=== PATIENT | male | born 1980 | race Caucasian/White ===

== ENCOUNTER 2017-09-11 14:39 | Observation (INO) | payer OTHER ==
--- NOTE | 2017-09-11 17:09 | RAD REPORT ---
EXAM DESCRIPTION: RAD - Abdomen Acute Series - 09/11/2017 5:01 pm CLINICAL HISTORY: Abdominal pain FINDINGS: The lungs appear clear of acute infiltrate. Free air is not seen beneath the diaphragm. The bowel gas pattern is unremarkable with a moderate amount of stool present throughout the colon
[2017-09-11] MEDS ORDERED: PANTOPRAZOLE 40 MG INJ ONE (18:00)
[2017-09-11] MEDS ORDERED: ONDANSETRON 4 MG/2 ML VIAL ONE (18:00)
[2017-09-11] MEDS ORDERED: NA CHLORIDE 0.9% 1,000 ML ONE (18:00)
--- NOTE | 2017-09-11 18:18 | EDPHYS ---
Physician Documentation [facility] Name: Rajan Bardales Age: 37 yrs Sex: Male : 1980 Arrival Date: 09/11/2017 Time: 14:43 Bed 24 Private MD: None, None ED Physician Tone Navarro HPI: 09/11 17:29 This 37 yrs old Male presents to ER via Ambulatory with complaints of carlyle Vomiting. 17:29 The patient presents to the emergency department with nausea, vomiting. Onset: The carlyle symptoms/episode began/occurred 1 year(s) ago. Possible causes: unknown. The symptoms are aggravated by food , The symptoms are alleviated by remaining still. Associated signs and symptoms: The patient has no apparent associated signs or symptoms. Severity of symptoms: At their worst the symptoms were mild. The patient has experienced similar episodes in the past, chronically. Historical: - Allergies: 14:50 No Known Allergies; sv - Home Meds: 14:50 None [Active]; sv - PMHx: 14:50 None; sv - PSHx: 14:50 None; sv - Immunization history:: Adult Immunizations up to date. - Social history:: Smoking status: Patient uses tobacco products, smokes one pack cigarettes per day. Patient uses alcohol, weekly. - Ebola Screening: : No symptoms or risks identified at this time. ROS: 17:29 Constitutional: Negative for fever, chills, and weight loss, Eyes: Negative for injury, carlyle pain, redness, and discharge, ENT: Negative for injury, pain, and discharge, Neck: Negative for injury, pain, and swelling, Cardiovascular: Negative for chest pain, palpitations, and edema, Respiratory: Negative for shortness of breath, cough, wheezing, and pleuritic chest pain, Back: Negative for injury and pain, : Negative for injury, bleeding, discharge, and swelling, MS/Extremity: Negative for injury and deformity, Skin: Negative for injury, rash, and discoloration, Neuro: Negative for headache, weakness, numbness, tingling, and seizure, Psych: Negative for depression, anxiety, suicide ideation, homicidal ideation, and hallucinations, Allergy/Immunology: Negative for hives, rash, and allergies, Endocrine: Negative for neck swelling, polydipsia, polyuria, polyphagia, and marked weight changes, Hematologic/Lymphatic: Negative for swollen nodes, abnormal bleeding, and unusual bruising. 17:29 Abdomen/GI: Positive for nausea, vomiting, dysphagia. Exam: 17:29 Constitutional: This is a well developed, well nourished patient who is awake, alert, carlyle and in no acute distress. Head/Face: Normocephalic, atraumatic. Eyes: Pupils equal round and reactive to light, extra-ocular motions intact. Lids and lashes normal. Conjunctiva and sclera are non-icteric and not injected. Cornea within normal limits. Periorbital areas with no swelling, redness, or edema. ENT: Nares patent. No nasal discharge, no septal abnormalities noted. Tympanic membranes are normal and external auditory canals are clear. Oropharynx with no redness, swelling, or masses, exudates, or evidence of obstruction, uvula midline. Mucous membranes moist. Neck: Trachea midline, no thyromegaly or masses palpated, and no cervical lymphadenopathy. Supple, full range of motion without nuchal rigidity, or vertebral point tenderness. No Meningismus. Chest/axilla: Normal chest wall appearance and motion. Nontender with no deformity. No lesions are appreciated. Cardiovascular: Regular rate and rhythm with a normal S1 and S2. No gallops, murmurs, or rubs. Normal PMI, no JVD. No pulse deficits. Respiratory: Lungs have equal breath sounds bilaterally, clear to auscultation and percussion. No rales, rhonchi or wheezes noted. No increased work of breathing, no retractions or nasal flaring. Abdomen/GI: Soft, non-tender, with normal bowel sounds. No distension or tympany. No guarding or rebound. No evidence of tenderness throughout. Back: No spinal tenderness. No costovertebral tenderness. Full range of motion. Male : Normal genitalia with no discharge or lesions. Skin: Warm, dry with normal turgor. Normal color with no rashes, no lesions, and no evidence of cellulitis. MS/ Extremity: Pulses equal, no cyanosis. Neurovascular intact. Full, normal range of motion. Neuro: Awake and alert, GCS 15, oriented to person, place, time, and situation. Cranial nerves II-XII grossly intact. Motor strength 5/5 in all extremities. Sensory grossly intact. Cerebellar exam normal. Normal gait. Psych: Awake, alert, with orientation to person, place and time. Behavior, mood, and affect are within normal limits. Vital Signs: 14:51 BP 141 / 105; Pulse 90; Resp 16; Temp 98.1; Pulse Ox 96% ; Weight 127.01 kg; Height 5 sv ft. 10 in. (177.80 cm); Pain 0/10; 17:18 BP 116 / 73; Pulse 85; Resp 18; Pulse Ox 97% on R/A; aj1 20:38 BP 110 / 76; Pulse 64; Resp 18; Pulse Ox 98% on R/A; aj1 14:51 Body Mass Index 40.18 (127.01 kg, 177.80 cm) sv MDM: 17:13 Patient medically screened. [facility] 17:31 Data reviewed: vital signs, nurses notes, lab test result(s), EKG, radiologic studies, [facility] CT scan, plain films. 09/11 17:28 Order name: Basic Metabolic Panel; Complete Time: 19:54 [facility] 09/11 17:28 Order name: BNP; Complete Time: 19:54 [facility] 09/11 17:28 Order name: CBC with Diff; Complete Time: 19:54 [facility] 09/11 17:28 Order name: Ckmb; Complete Time: 19:54 [facility] 09/11 17:28 Order name: CPK; Complete Time: 19:54 [facility] 09/11 17:28 Order name: LFT's; Complete Time: 19:54 [facility] 09/11 15:12 Order name: Abdomen Acute Series XRAY; Complete Time: 18:15 snw 09/11 17:28 Order name: Magnesium; Complete Time: 19:54 [facility] 09/11 17:28 Order name: PT-INR [facility] 09/11 17:28 Order name: Ptt, Activated [facility] 09/11 17:28 Order name: Troponin (emerg Dept Use Only); Complete Time: 19:54 [facility] 09/11 17:28 Order name: Lipase; Complete Time: 19:54 [facility] 09/11 17:28 Order name: CT Chest W/ Con [facility] 09/11 17:28 Order name: EKG; Complete Time: 17:29 [facility] 09/11 17:28 Order name: Cardiac monitoring; Complete Time: 17:56 [facility] 09/11 17:28 Order name: EKG - Nurse/Tech; Complete Time: 17:56 [facility] 09/11 17:28 Order name: IV Saline Lock; Complete Time: 18:46 [facility] 09/11 17:28 Order name: Labs collected and sent; Complete Time: 18:46 [facility] 09/11 17:28 Order name: O2 Per Protocol; Complete Time: 17:56 [facility] 09/11 17:28 Order name: O2 Sat Monitoring; Complete Time: 17:56 [facility] 09/11 18:26 Order name: CONS Physician Consult [facility] [place] 09/11 18:26 Order name: NPO EDTN 09/11 19:34 Order name: CT; Complete Time: 19:54 EDTN Administered Medications: 18:44 Drug: NS 0.9% 1000 ml Route: IV; Rate: 1 bolus; Site: right antecubital; aj1 20:59 Follow up: IV Status: Completed infusion; IV Intake: 1000ml aj 18:44 Drug: ProTONIX 40 mg Route: IVP; Site: right antecubital; aj1 20:59 Follow up: Response: No adverse reaction aj1 18:44 Drug: Zofran 4 mg Route: IVP; Site: right antecubital; aj1 20:59 Follow up: Response: No adverse reaction aj Disposition: 09/11/17 18:17 Hospitalization ordered by Angella Haley for Observation. Preliminary diagnosis are Dysphagia, Vomiting. - Bed requested for Telemetry/MedSurg (observation). - Status is Observation. aj1 - Condition is Stable. - Problem is new. - Symptoms have improved. UTI on Admission? No Signatures: Dispatcher [employer] EDTN Lilian Macias RN RN aj1 Jigna Norwood RN RN sv Woody, Diana, RN RN dw Anderson, Corey, MD MD cha Botello, Elizabeth eb Corrections: (The following items were deleted from the chart) 17:37 17:29 Chest Single View+RAD.RAD.BRZ ordered. [facility] 19:47 18:17 Hospitalization Ordered by Angella Haley MD for Observation. Preliminary diagnosis dw is Dysphagia; Vomiting. Bed requested for Telemetry/MedSurg (observation). Status is Observation. Condition is Stable. Problem is new. Symptoms have improved. UTI on Admission? No. [facility] 19:55 19:47 09/11/2017 18:17 Hospitalization Ordered by Angella Haley MD for Observation. eb Preliminary diagnosis is Dysphagia; Vomiting. Bed requested for Telemetry/MedSurg (observation). Status is Observation. Condition is Stable. Problem is new. Symptoms have improved. UTI on Admission? No. dw 21:00 19:55 09/11/2017 18:17 Hospitalization Ordered by Angella Haley MD for Observation. aj1 Preliminary diagnosis is Dysphagia; Vomiting. Bed requested for Telemetry/MedSurg (observation). Status is Observation. Condition is Stable. Problem is new. Symptoms have improved. UTI on Admission? No. eb
--- NOTE | 2017-09-11 18:18 | ER ---
Nurse's Notes [facility] Name: Rajan Bardales Age: 37 yrs Sex: Male : 1980 Arrival Date: 09/11/2017 Time: 14:43 Bed 24 Private MD: None, None Diagnosis: Dysphagia;Vomiting Presentation: 09/11 14:48 Presenting complaint: Patient states: "If I eat something it hurts going down. It's sv hard to keep stuff down." Started about a year ago. Pt reports a couple of years ago he had an xray done and they said he might have had a tear in my esophagus. Transition of care: patient was not received from another setting of care. Onset of symptoms was August 2016. Care prior to arrival: None. 14:48 Method Of Arrival: Ambulatory sv 14:48 Acuity: JALEESA 3 sv 14:48 Risk Assessment: Do you want to hurt yourself or someone else? Patient reports no sv desire to harm self or others. Initial Sepsis Screen: Does the patient meet any 2 criteria? No. Patient's initial sepsis screen is negative. Does the patient have a suspected source of infection? No. Patient's initial sepsis screen is negative. Triage Assessment: 14:48 General: Appears uncomfortable, obese, Behavior is calm, cooperative, appropriate for sv age. Pain: Denies pain. EENT: Reports pain when swallowing. Neuro: Level of Consciousness is awake, alert, obeys commands, Oriented to person, place, time, situation, Moves all extremities. Full function Gait is steady, Speech is normal. Respiratory: Respiratory effort is even, unlabored, Respiratory pattern is regular, symmetrical. GI: Reports vomiting. Derm: Skin is normal. Historical: - Allergies: 14:50 No Known Allergies; sv - Home Meds: 14:50 None [Active]; sv - PMHx: 14:50 None; sv - PSHx: 14:50 None; sv - Immunization history:: Adult Immunizations up to date. - Social history:: Smoking status: Patient uses tobacco products, smokes one pack cigarettes per day. Patient uses alcohol, weekly. - Ebola Screening: : No symptoms or risks identified at this time. Screenin:18 Abuse screen: Denies threats or abuse. Denies injuries from another. Nutritional aj1 screening: No deficits noted. Tuberculosis screening: No symptoms or risk factors identified. 20:38 Fall Risk No fall in past 12 months (0 pts). No secondary diagnosis (0 pts). IV access aj1 (20 points). Ambulatory Aid- None/Bed Rest/Nurse Assist (0 pts). Gait- Normal/Bed Rest/Wheelchair (0 pts) Mental Status- Oriented to own ability (0 pts). Total Martines Fall Scale indicates No Risk (0-24 pts). Assessment: 17:18 General: Appears in no apparent distress. comfortable, Behavior is calm, cooperative, aj1 appropriate for age. Pain: Denies pain. Neuro: Level of Consciousness is awake, alert, obeys commands. Cardiovascular: Patient's skin is warm and dry. Respiratory: Airway is patent Respiratory effort is even, unlabored, Respiratory pattern is regular, symmetrical. GI: Abdomen is non-distended, Reports vomiting, sometimes after he eats, states that he has not vomited at all in the past 24 hours. : No signs and/or symptoms were reported regarding the genitourinary system. EENT: Reports pain when swallowing. Derm: Skin is pink, warm \\T\\ dry. normal. Musculoskeletal: Circulation, motion, and sensation intact. 18:20 Reassessment: Patient appears in no apparent distress at this time. No changes from aj1 previously documented assessment. Patient and/or family updated on plan of care and expected duration. Pain level reassessed. Patient is alert, oriented x 3, equal unlabored respirations, skin warm/dry/pink. 19:22 Reassessment: Patient appears in no apparent distress at this time. No changes from aj1 previously documented assessment. Patient and/or family updated on plan of care and expected duration. Pain level reassessed. Patient is alert, oriented x 3, equal unlabored respirations, skin warm/dry/pink. 20:38 Reassessment: Patient appears in no apparent distress at this time. No changes from aj1 previously documented assessment. Patient and/or family updated on plan of care and expected duration. Pain level reassessed. Patient is alert, oriented x 3, equal unlabored respirations, skin warm/dry/pink. Vital Signs: 14:51 BP 141 / 105; Pulse 90; Resp 16; Temp 98.1; Pulse Ox 96% ; Weight 127.01 kg; Height 5 sv ft. 10 in. (177.80 cm); Pain 0/10; 17:18 BP 116 / 73; Pulse 85; Resp 18; Pulse Ox 97% on R/A; aj1 20:38 BP 110 / 76; Pulse 64; Resp 18; Pulse Ox 98% on R/A; aj1 14:51 Body Mass Index 40.18 (127.01 kg, 177.80 cm) ED Course: 14:43 Patient arrived in ED. mr 14:44 None, None is Private Physician. mr 14:50 Triage completed. sv 14:51 Arm band placed on right wrist. sv 14:51 Patient placed in waiting room, Patient notified of wait time. sv 16:55 Patient moved to radiology via wheelchair. 1 16:56 X-ray completed. Patient tolerated procedure well. 1 16:56 Patient moved back from radiology. 1 16:57 Abdomen Acute Series XRAY In Process Unspecified. EDNJ 17:09 Lilian Macias, RN is Primary Nurse. [facility] 17:13 Tone Navarro MD is Attending Physician. [facility] 17:18 Patient has correct armband on for positive identification. Bed in low position. Call [facility] light in reach. Side rails up X 1. 17:18 No provider procedures requiring assistance completed. aj1 17:31 Radiology exam delayed due to lab results not completed at this time. (BUN/Creatinine). 17:44 EKG done, by computer service technician. reviewed by Tone Navarro MD. [facility] 17:47 Radiology exam delayed due to lab results not completed at this time. IV insertion mw3 attempt and/or patient not having appropriate IV at this time. 18:17 Angella Haley MD is Hospitalizing Provider. carlyle 18:45 Initial lab(s) drawn, by fl, sent to lab. Inserted saline lock: 18 gauge in right aj antecubital area, using aseptic technique. Blood collected. 18:47 Radiology exam delayed due to lab results not completed at this time. (BUN/Creatinine). sj 19:[address] via wheelchair. nj 19:23 CT completed. Patient tolerated procedure well. Patient moved back from CT. nj 20:39 Report given to Carina Angelo LVN on 4th floor. aj1 20:39 Patient admitted, IV remains in place. aj Administered Medications: 18:44 Drug: NS 0.9% 1000 ml Route: IV; Rate: 1 bolus; Site: right antecubital; aj1 20:59 Follow up: IV Status: Completed infusion; IV Intake: 1000ml aj1 18:44 Drug: ProTONIX 40 mg Route: IVP; Site: right antecubital; aj1 20:59 Follow up: Response: No adverse reaction aj1 18:44 Drug: Zofran 4 mg Route: IVP; Site: right antecubital; aj1 20:59 Follow up: Response: No adverse reaction aj1 Intake: 20:59 IV: 1000ml; Total: 1000ml. aj1 Outcome: 18:17 Decision to Hospitalize by Provider. [facility] 20:58 Admitted to Med/surg accompanied by tech, via wheelchair, room 405, with chart. aj1 20:58 Condition: stable 20:58 Discharge instructions given to patient, Instructed on the need for admit. 21:00 Patient left the ED. aj1 Signatures: Dispatcher [employer] EDLilian Deleon RN RN aj1 Jigna Norwood RN RN sv Anderson, Corey, MD MD cha Rivera, Maria mr Magdaleno, Nathalie mh1 Rashid, Pari Kennedy, Jud Jain 3 [place] Villegas mw3 Corrections: (The following items were deleted from the chart) 14:53 14:48 Presenting complaint: Patient states: "If I eat something it hurts going down. sv It's hard to keep stuff down." Started about a year ago. sv 14:53 14:48 Acuity: JALEESA 4 sv sv
[2017-09-11] MEDS ORDERED: ONDANSETRON 4 MG/2 ML VIAL IV PRN (18:23)
[2017-09-11 18:53] LABS: Absolute Lymphocytes (CBC) 2.2 K/uL (0.7-4.9); Absolute Monocytes 0.7 K/uL (0.1-1.3); Absolute Neutrophil 4.1 K/uL (1.8-8.0); Basophils % 0.8 % (0-1.3); Eosinophils % 2.4 % (0-4.4); Hematocrit 44.9 % (39.6-49.0); Lymphocytes % 30.4 % (15.3-44.8); MCH 30.5 pg (27.0-35.0); MCV 86.8 fL (80-100); MPV 8.8 fL (7.6-11.3); Monocytes % 10.2 % (3.3-12.3); RBC Red Blood Cell Count 5.17 M/uL (4.33-5.43)
[2017-09-11 19:04] LABS: Bicarbonate 27 mEq/L (21-31); Glucose Level 95 mg/dL (65-120); Lipase 26 U/L (22-51); Potassium 3.2 mEq/L (3.6-5.0); Sodium Level 136 mEq/L (135-145)
[2017-09-11 19:10] LABS: ALT/SGPT 21 IU/L (10-60); AST/SGOT 15 IU/L (10-42); Alkaline Phosphatase 82 IU/L (42-121); BUN Blood Urea Nitrogen 7 mg/dL (6-20); Bilirubin Direct 0.1 mg/dL (0-0.2); Bilirubin Total 0.4 mg/dL (0.3-1.2); Creatine Phosphokinase 56 IU/L (22-269); Protein, Total 7.3 g/dL (6.0-8.3)
[2017-09-11 19:11] LABS: CKMB Creatine Kinase MB 1.2 ng/ml (0.3-4.0)
--- NOTE | 2017-09-11 19:33 | RAD REPORT ---
EXAM DESCRIPTION: CT - Thorax W/ Con - 09/11/2017 7:23 pm CLINICAL HISTORY: Chest pain COMPARISON: Portable chest September 11, CT trauma study 2010 TECHNIQUE: Dynamically enhanced 5 mm thick images of the chest were obtained during administration o f 100 mL non-ionic IV contrast. All CT scans are performed using dose optimization technique as appropriate and may include automated exposure control or mA/KV adjustment according to patient size. FINDINGS: No mass or infiltrate in the lung parenchyma. No pleural thickening or pleural effusion. N o pneumothorax. No chest wall mass or abnormal axillary lymphadenopathy. No abnormal mediastinal or hilar mass or lymphadenopathy seen. No acute rib finding or other acute bone process. Limited upper abdomen imaging shows no focal liver lesion or adrenal lesion. Minimal hiatal hernia is present. IMPRESSION: No acute lung parenchymal process. No mediastinal or hilar abnormality. Minimal hiatal hernia. Liver is questionably fatty infiltrated.
[2017-09-11 19:51] LABS: Protime INR 1.13
--- NOTE | 2017-09-11 20:11 | P.HP ---
Certification for Inpatient Patient admitted to: Observation With expected LOS: <2 Midnights Practitioner: I am a practitioner with admitting privileges, knowledge of patient current condition, hospital course, and medical plan of care. Services: Services provided to patient in accordance with Admission requirements found in Title 42 Section 412.3 of the Code of Federal Regulations Patient History Date of Service: 09/11/17 Reason for admission: dyspepsia, GERD History of Present Illness: Mr Bardales is a 37 years old male with history of tobacco abuse, obesity, who start about 1 years ago with recurrent episodes of epigastric pain, associated wit difficulty swallow solid food but not liquids. He is not very clear explaining his symptoms, but seems to have acid reflux as well since is having burning pain in his abdomen, radiating to his chest, leading with nausea and vomiting. He states that initially his symptoms got better with nexium, but now is not working. He smoke more than 1 ppd, and drinks a couple of beers many days of the week. He use to drink 6 beers daily before his symptoms start. No history of fever or chills. He came today to ER because his father convince him that needs to be evaluated. Lab work mostly unremarkable, except for hypokalemia 3.2. CT chest shows minimal hiatal hernia and his liver is questionably fatty infiltrated. Allergies No Known Allergies Allergy (Unverified 09/11/17 19:03) - Past Medical/Surgical History -: GERD -: tobacco abuse -: obesity Past Surgical History: Reviewed- Non-Contributory - Family History Family History: Reviewed- Non-Contributory - Social History Smoking Status: Current every day smoker Counseled patient to stop smoking for: less than 10 minutes Smoking therapy provided: Yes Patient receptive to therapy: No Alcohol use: Yes CD- Drugs: No Place of Residence: Home Review of Systems 10-point ROS is otherwise unremarkable Physical Examination - Physical Exam General: Alert, In no apparent distress HEENT: Atraumatic, PERRLA, Mucous membr. moist/pink, EOMI, Sclerae nonicteric Neck: Supple, 2+ carotid pulse no bruit, No LAD, Without JVD or thyroid abnormality Respiratory: Clear to auscultation bilaterally, Normal air movement Cardiovascular: Regular rate/rhythm, Normal S1 S2 Gastrointestinal: Normal bowel sounds, Tenderness (mild tenderness on epigastric area) Musculoskeletal: No tenderness Integumentary: No rashes Neurological: Normal gait, Normal speech, Normal strength at 5/5 x4 extr, Normal tone, Normal affect Lymphatics: No axilla or inguinal lymphadenopathy Assessment and Plan - Problems (Diagnosis) (1) Dysphagia Current Visit: Yes Status: Acute Qualifiers: Dysphagia type: esophageal phase Qualified Code(s): R13.10 - Dysphagia, unspecified (2) Dyspepsia Current Visit: Yes Status: Acute (3) GERD (gastroesophageal reflux disease) Current Visit: Yes Status: Acute Qualifiers: Esophagitis presence: esophagitis presence not specified Qualified Code(s) : K21.9 - Gastro-esophageal reflux disease without esophagitis (4) Obesity Current Visit: Yes Status: Acute Qualifiers: Obesity type: due to excess calories Obesity classification: adult class 1 (BMI 30 - 34.9) Serious obesity comorbidity presence: unspecified whether serious comorbidity present Body mass index: unspecified BMI Qualified Code( s): E66.09 - Other obesity due to excess calories (5) Tobacco abuse Current Visit: Yes Status: Acute - Plan Mr Bardales will be admitted to the hospital under observation due to dysphagia, dyspepsia and GERD. Dr Ortiz was consulted from ER and he is planning to do EGD in AM. Will keep him NPO after midnight. Continue PPI, and symptomatic medication for nausea. - Advance Directives Does patient have a Living Will: No Does patient have a Durable POA for Healthcare: No - Code Status/Comfort Care Code Status Assessed: Yes Code Status: Full Code
[2017-09-11 21:04] VITALS: BMI 40.3
[2017-09-11] MEDS: NA CHLORIDE 0.9% 1,000 ML IV SCH (21:33)
--- NOTE | 2017-09-11 21:33 | EKG ---
Test Date: 2017-09-11 Test Time: 17:36:34 Reverse Unit Operator Fisherman: ARMAAN MEASUREMENT RESULTS: Intervals: Rate: 64 MI: 120 QRSD: 98 QT: 410 QTc: 422 [place]odus: P: 48 MI: 120 QRS: 52 T: 28 INTERPRETIVE STATEMENTS: Normal sinus rhythm with sinus arrhythmia Nonspecific T wave abnormality Abnormal ECG Compared to ECG 03/17/2010 05:48:22 Sinus tachycardia no longer present Left ventricular hypertrophy no longer present T-wave abnormality still present Electronically Signed On 09-11-17 21:32:22 CDT by Shoaib Benavides
[2017-09-12] MEDS: NA CHLORIDE 0.9% 1,000 ML IV SCH ×2 (03:37→11:00)
[2017-09-12] MEDS ORDERED: PANTOPRAZOLE 40 MG INJ IVP SCH (09:00)
[2017-09-12] MEDS ORDERED: SODIUM CHLORIDE 0.9% 10ML INJ IV SCH (09:00)
[2017-09-12] MEDS ORDERED: Ringers Lactate 1,000 ML IV ONE (11:00)
[2017-09-12] MEDS ORDERED: PROPOFOL 200 MG/20 ML VIAL IV ONE (11:35)
--- NOTE | 2017-09-12 12:15 | ENDO RPT ---
[address], [address] EGD PROCEDURE REPORT EXAM DATE: 09/12/2017 PATIENT NAME: Rajan Bardales MR#: [id number] BIRTHDATE: 1980 ATTENDING: Jay Ortiz Dr STATUS: inpatient - 7 HOME DECORATOR: Della De Santiago and Vilma Chahal RN INDICATIONS: The patient is a 37 yr old Male here for an EGD due to odynophagia, dysphagia, and GERD PROCEDURE PERFORMED: EGD with biopsy MEDICATIONS: Per Anesthesia. TOPICAL ANESTHETIC: none CONSENT: The patient understands the risks and benefits of the procedure and understands that these risks include, but are not limited to: sedation, allergic reaction, infection, perforation and/or bleeding. Alternative means of evaluation and treatment include, among others: physical exam, x-rays, and/or surgical intervention. The patient elects to proceed with this endoscopic procedure. DESCRIPTION OF PROCEDURE: During intra-op preparation period all mechanical medical equipment was checked for proper function. Hand hygiene and appropriate measures for infection prevention was taken. Procedure, possible complications, and alternatives including but not limited to the possibility of bleeding, perforation, tear, infection, sepsis, need for surgery, need for blood transfusion, and anesthesia related complications were explained to the patient. After the risks, benefits and alternatives of the procedure were thoroughly explained, Informed consent was verified, confirmed and timeout was successfully executed by the treatment team. The patient was placed in the left lateral position. The patient was anesthetized with topical anesthesia. Through the anesthetized oropharyngeal area, the scope was passed without any difficulty. The Pentax EG-[id number] ([id number]) endoscope was introduced through the mouth and advanced to the second portion of the duodenum. Retroflexed views revealed a small hiatal hernia. The gastroscope was then slowly withdrawn and removed. LA Class B esophagitis was found in the lower esophagus. A stricture was found in the lower esophagus. A small hiatal hernia was found Duodenitis was found in the bulb of the duodenum. Multiple biopsies were obtained and sent to pathology. Multiple (2) punctate ulcers were found in the bulb of the duodenum. ADVERSE EVENTS: There were no complications. IMPRESSIONS: 1. LA Class B esophagitis in the lower esophagus 2. Mild stricture in the lower esophagus, able to pass with endoscope easily 3. Small hiatal hernia 4. Duodenitis in the bulb of the duodenum 5. Two punctate ulcers in the bulb of the duodenum RECOMMENDATIONS: 1. await biopsy results 2. acid suppression therapy REPEAT EXAM: Jay Ortiz Dr eSigned: Jay Ortiz Dr 09/12/2017 12:15 PM cc: CPT CODES: ICD9 CODES: PATIENT NAME: Rajan Bardales MR#: [id number]
[2017-09-12 12:43] VITALS: TEMP 97.7
[2017-09-12 12:44] VITALS: BP 108/66; O2SAT 98
--- NOTE | 2017-09-12 14:07 | P.DS ---
Admission Date: 09/11/17 Discharge Date: 09/12/17 Disposition: ROUTINE DISCHARGE Discharge Condition: GOOD Reason for Admission: dyspepsia, GERD Consultations: dr. Ortiz GI Procedures: EGD, duodenal ulcers, duodenitis, esophagitis, hiatal hernia - Problems (1) Duodenal ulcer Current Visit: Yes Status: Acute (2) Esophagitis Current Visit: Yes Status: Acute (3) Hiatal hernia Current Visit: Yes Status: Acute (4) Dyspepsia Onset Date: 09/12/17 Current Visit: Yes Status: Acute (5) Dysphagia Onset Date: 09/12/17 Current Visit: Yes Status: Acute Qualifiers: Dysphagia type: esophageal phase Qualified Code(s): R13.10 - Dysphagia, unspecified (6) GERD (gastroesophageal reflux disease) Onset Date: 09/12/17 Current Visit: Yes Status: Acute Qualifiers: Esophagitis presence: esophagitis presence not specified Qualified Code(s) : K21.9 - Gastro-esophageal reflux disease without esophagitis (7) Obesity Onset Date: 09/12/17 Current Visit: Yes Status: Acute Qualifiers: Obesity type: due to excess calories Obesity classification: adult class 1 (BMI 30 - 34.9) Serious obesity comorbidity presence: unspecified whether serious comorbidity present Body mass index: unspecified BMI Qualified Code( s): E66.09 - Other obesity due to excess calories (8) Tobacco abuse Onset Date: 09/12/17 Current Visit: Yes Status: Acute Brief History of Present Illness: From H&P Mr. Bardales is a 37 years old male with history of tobacco abuse, obesity, who start about 1 years ago with recurrent episodes of epigastric pain, associated wit difficulty swallow solid food but not liquids. He is not very clear explaining his symptoms, but seems to have acid reflux as well since is having burning pain in his abdomen, radiating to his chest, leading with nausea and vomiting. He states that initially his symptoms got better with nexium, but now is not working. He smoke more than 1 ppd, and drinks a couple of beers many days of the week. He use to drink 6 beers daily before his symptoms start. No history of fever or chills. He came today to ER because his father convince him that needs to be evaluated. Lab work mostly unremarkable, except for hypokalemia 3.2. CT chest shows minimal hiatal hernia and his liver is questionably fatty infiltrated. Hospital Course: 37-year-old male who was admitted to the hospital for dysphagia which is been ongoing for the past year with acute exacerbation of his symptoms. Patient unable to tolerate solids and had symptoms of dyspepsia. Patient was started on IV PPI as. Patient was seen by GI doctor Diana and had EGD done which showed duodenal ulcers esophagitis and duodenitis. Patient felt better with IV PPI. Patient was able to tolerate a diet. His pain improved. Patient was educated on preventing acid reflux symptoms avoiding trigger foods, sleeping with head elevated at 30 degrees as well as avoiding any p.o. intake 2 hr prior to sleeping. Patient was cleared for discharge from GI standpoint. Patient encouraged to establish care with a primary care physician. Patient to follow up with GI in 2 -4 weeks for repeat EGD for improvement of symptoms. Patient to follow up with biopsy results it Dr. Kern office. Patient educated regarding his obesity patient needs to modify his diet and exercise routine as he is beginning to develop fatty liver disease as found on CT. Patient voiced understanding all questions answered. Father at the bedside Vital Signs/Physical Exam: Temp Pulse Resp BP Pulse Ox 97.7 F 91 H 18 108/66 90 L 09/12/17 13:13 09/12/17 13:13 09/12/17 13:13 09/12/17 13:13 09/12/17 08:00 Other Physical/Emotional Findings: PLEASE SEE PROGRESS NOTE DICTATED ON DAY OF DISCHARGE FOR PHYSICAL EXAM FINDINGS Laboratory Data at Discharge: WBC 7.3 K/uL (4.3-10.9) 09/11/17 18:40 Hgb 15.7 g/dL (13.6-17.9) 09/11/17 18:40 Hct 44.9 % (39.6-49.0) 09/11/17 18:40 Plt Count 226 K/uL (152-406) 09/11/17 18:40 PT 13.3 SECONDS (9.5-12.5) H 09/11/17 18:40 INR 1.13 09/11/17 18:40 APTT 29.4 SECONDS (24.3-36.9) 09/11/17 18:40 Sodium 136 mEq/L (135-145) 09/11/17 18:40 Potassium 3.2 mEq/L (3.6-5.0) L 09/11/17 18:40 BUN 7 mg/dL (6-20) 09/11/17 18:40 Creatinine 0.79 mg/dL (0.61-1.24) 09/11/17 18:40 Glucose 95 mg/dL (65-120) 09/11/17 18:40 Magnesium 2.0 mg/dL (1.8-2.5) 09/11/17 18:40 Total Bilirubin 0.4 mg/dL (0.3-1.2) 09/11/17 18:40 AST 15 IU/L (10-42) 09/11/17 18:40 ALT 21 IU/L (10-60) 09/11/17 18:40 Alkaline Phosphatase 82 IU/L (42-121) 09/11/17 18:40 B-Natriuretic Peptide 28 pg/ml (<=100) 09/11/17 18:40 Lipase 26 U/L (22-51) 09/11/17 18:40 Home Medications: Pantoprazole [Protonix Tab] 40 mg PO BID #60 tab 09/12/17 New Medications: Pantoprazole [Protonix Tab] 40 mg PO BID #60 tab Patient Discharge Instructions: establish care w PCP. f/up w GI Dr. Ortiz in 2 weeks. REturn to ER for worsening condition Diet: Regular (acid reflux precautions) Activity: Ad yovanny Followup: Jay Ortiz MD [ASSOCIATE-ACTIVE - CAN ADMIT] - 1-2 Weeks (Call to schedule an appointment)
--- NOTE | 2017-09-12 17:07 | PN ---
Date of Progress Note: 09/12/2017 Subjective: The patient is seen and examined, chart reviewed and case discussed with RN. The patien t states his abdominal discomfort has improved, however, not completely resolved. Review of Systems: Negative except as above. Medications: Reviewed. Objective: Vital Signs: Temperature 97.4, heart rate 77, blood pressure 130/73, respirations 16, O2 90% on room air. General: Awake, alert, oriented x3, in some mild distress, morbidly obese male, BMI of 40. CV: S1, S2. No murmurs. Regular rate and rhythm. Peripheral pulses present. Respiratory: Clear to auscultation bilaterally. No wheezing. No stridor. No use of accessory musc les. Gastrointestinal: Abdomen is soft, nontender, nondistended. Positive bowel sounds. Obese. No guar ding or rigidity. Extremities: No clubbing, cyanosis, edema. Neurologic: Nonfocal. Laboratory Data: Troponin less than 0.03. CT scan of the chest shows no acute lung parenchymal proc ess, minimal hiatal hernia, questionable fatty infiltration. Assessment: A 37-year-old male with; 1.Generalized abdominal pain, likely related to possible peptic ulcer disease or gastroesophageal re flux disease. 2.Dysphagia with both solids and liquids, worse with solids. The patient is scheduled for EGD by Dr Brinda Ortiz. Has been ongoing for the past 1 year. 3.dyspepsia. 4.Gastroesophageal reflux disease, esophagitis present. We will continue with PPI. 5.Obesity, morbid, body mass index 40.3 due to excess calories. 6.Nicotine dependence with cigarette smoking, uncomplicated. /MODL Voice ID: [id number] Report ID: [id number]
--- NOTE | 2017-12-02 21:21 | CON ---
Date of Consultation: 09/12/2017 Reason For Consultation: Odynophagia greater than dysphagia over the past year. History Of Present Illness: This patient is a 37-year-old male with history of gastric reflux diseas e, tobacco abuse, and obesity. The patient was admitted to the hospital due to dyspepsia and reflux disease. The patient has been having some recurrent episodes of epigastric associated with difficult episodes of painful swallowing and this had problems swallowing solids, but not liquids. He also de la torre s some burning in his abdomen and chest with associated nausea and vomiting. He states since the sym ptoms got better initially with Nexium and worsening. He smokes more than a pack a day and drinks a couple of beers a day, he cannot get up to 6 beers a day where he was before his symptoms started to worsen back enough since that time. He came to the ER today because his father these to be evaluated. His potassium is low 3.2. CT chest shows some minimal hiatal hernia and roberto e mild fatty infiltration of the liver is questionable. The patient states he has had reflux disease over the past year that was worsening as well as stated above. Past Medical History: Significant for gastroesophageal reflux disease, tobacco abuse, and obesity. Allergies: NKDA. Home Medications: except for Nexium. Family History: Father alive with diabetes, hypertension, coronary artery disease., status post 2 ve ssel CABG and cardiac stents. Mother with diabetes, hypertension, alive as well, chronic kidney dise ase, and uterine cancer as well. Social History: , 2 children. Tobacco 1-pack per day. Alcohol occasionally. Past Surgical History: Includes right inguinal hernia surgery at the age of 6, obesity. Physical Examination: Vital Signs: The patient is 5 foot 10, 281 pounds. BMI of 40.3 kg/m2. Temperature 97.4 degrees Fah renheit, pulse 77, respirations 16, blood pressure 134/73, O2 saturation 90% to 96%. General: He is obese male, lying in bed, in no acute distress. HEENT: Normocephalic and atraumatic. Anicteric. Pupils are equal, round, and reactive to light. E xtraocular movements are intact. Oropharynx is clear. Neck: Supple. Respirations: Clear auscultation bilaterally. Cardiac: Regular. Gastrointestinal: Positive bowel sounds. Soft, nontender, and nondistended. No hepatosplenomegaly. Extremities: No clubbing, cyanosis, or edema. 2+ pulses. Neurologic: Alert and oriented x3. Grossly nonfocal. 5/5 motor strength. Sensation intact to ligh t touch. Laboratory Data: On the , the patient had a white count of 7.3, hemoglobin 15.7, hematocrit 45, MCV of 87, platelet count of 226, polys of 56%, lymphocytes 20%, monocytes 10%, and eosinophils 3%, b asophils 1%. He had a PT of 13.3, INR of 1.13, PTT of 29.4. The patient has a sodium 136, potassium 3.2, chloride 102, bicarb 27, BUN is 7, creatinine 0.8, glucose 95, calcium 8.9, magnesium 2.0, tota l bilirubin 0.4, direct bilirubin 0.1, AST 15, ALT 21, alkaline phosphatase 82. Troponin I less than 0.03. B-type natriuretic peptide 28. Total protein 7.3, albumin 4.0, lipase 26. The patient has C T of chest shows questionable fatty infiltration of the liver, otherwise minimal hiatal hernia, other leon negative. Impression: 1.Odynophagia greater than dysphagia over the past year with worsening gastric reflux disease over t he past year as well and obesity. 2.History of right inguinal hernia surgery 5 years ago, obesity, gastric reflux disease. Recommendation: 1.EGD. 2.PPI therapy. 3.Monitor labs. KATHY/ROBLES Voice ID: [id number] Report ID: [id number]
== END 2017-09-12 15:10 | disposition home or self-care (01) ==
LOC: ER 14:39 → ERHOLD 18:21 → 4TH 20:26
PROVIDERS: ADMIT Family Medicine; ATTEND Internal Medicine
PROC: 0DB98ZX Excision of Duodenum, Via Natural or Artificial Opening Endoscopic, Diagnostic (ICD-10-PCS; principal; 2017-09-12 13:30)
DX: K26.3 Acute duodenal ulcer without hemorrhage or perforation (principal); K44.9 Diaphragmatic hernia without obstruction or gangrene; K29.80 Duodenitis without bleeding; K21.0 Gastro-esophageal reflux disease with esophagitis; R10.13 Epigastric pain; R13.10 Dysphagia, unspecified; E66.9 Obesity, unspecified; Z68.41 Body mass index [BMI] 40.0-44.9, adult; F17.210 Nicotine dependence, cigarettes, uncomplicated
CPT/HCPCS: 36415; 71260; 74022; 80048; 80076; 82550; 82553; 83690; 83735; 83880; 84484; 85025; 85610; 85730; 88305; 88312; 93005; 96361; 96374; 96375; 99285; C9113; G0378; J2405; J7030; Q9967

== ENCOUNTER 2018-05-03 08:44 | Inpatient (IN) | payer OTHER ==
[2018-05-03 09:25] LABS: Urine Bacteria <20 /HPF (NONE SEEN); Urine Culture Reflex Order NOT NEEDED; Urine Mucus 1+ /HPF (NONE SEEN); Urine RBC TNTC /HPF (NONE SEEN)
[2018-05-03 09:25] LABS: Urine Blood 3+ (NEG); Urine Glucose NEGATIVE (NEG); Urine Protein 2+ (NEG); Urine Specific Gravity 1.015 (1.005-1.030)
--- NOTE | 2018-05-03 09:40 | RAD REPORT ---
EXAM DESCRIPTION: CT - Stone Protocol - 05/03/2018 9:26 am CLINICAL HISTORY: Flank pain. HEMATURIA COMPARISON: CT HEAD CSPINE CAP WO CONTRAST dated 12/18/2010 TECHNIQUE: Axial images were obtained without oral or IV contrast. Lack of contrast limits solid org an and vascular assessment. The [id number] spans the entirety of the system partially obscuring uppermost abdomen and lung bases. Coronal reformatted images were obtained and reviewed. All CT scans are performed using dose optimization technique as appropriate and may include automated exposure control or mA/KV adjustment according to patient size. FINDINGS: The lower lung fergoso are clear. Imaged portions of the liver and spleen show no suspicious findings on non-contrast imaging. The panc reas and adrenal glands are normal. No pathologic lymphadenopathy in the abdomen or pelvis. Punctate calculus is seen in the inferior right kidney. The right kidney appears enlarged and edemato us with surrounding perinephric fat stranding. The left kidney appears normal in size. No hydronephro sis of either kidney. No bowel obstruction, free air, free fluid or abscess. Normal appendix noted. No significant bony abnormality. IMPRESSION: Significant enlargement of the right kidney with perinephric fat stranding suggesting py elonephritis. No evidence of abscess. Punctate inferior calculus is present in the right kidney.
--- NOTE | 2018-05-03 10:03 | EDPHYS ---
Physician Documentation [facility] Name: Rajan Bardales Age: 38 yrs Sex: Male : 1980 Arrival Date: 05/03/2018 Time: 08:49 Bed 17 Private MD: ED Physician Jerry Alvarez HPI: 05/03 09:31 This 38 yrs old Male presents to ER via Ambulatory with complaints of Pain snw With Urination, Fever. 09:31 The patient presents with urinary symptoms, dysuria. Onset: The symptoms/episode snw began/occurred suddenly, 3 day(s) ago, and became persistent. Associated signs and symptoms: Pertinent positives: fever. Severity of symptoms: At their worst the symptoms were moderate. The patient has experienced a previous episode. The patient has not recently seen a physician. pt is uncircumcised and has had unprotected intercourse. Historical: - Allergies: 09:03 No Known Allergies; iw - Home Meds: 09:03 None [Active]; iw - PMHx: 09:03 None; iw - PSHx: 09:03 None; iw - Immunization history:: Adult Immunizations not up to date. - Social history:: Smoking status: Patient uses tobacco products, smokes one pack cigarettes per day. - Ebola Screening: : Patient negative for fever greater than or equal to 101.5 degrees Fahrenheit, and additional compatible Ebola Virus Disease symptoms Patient denies exposure to infectious person Patient denies travel to an Ebola-affected area in the 21 days before illness onset No symptoms or risks identified at this time. ROS: 09:31 Constitutional: Negative for fever, chills, and weight loss, Eyes: Negative for injury, snw pain, redness, and discharge, ENT: Negative for injury, pain, and discharge, Neck: Negative for injury, pain, and swelling, Cardiovascular: Negative for chest pain, palpitations, and edema, Respiratory: Negative for shortness of breath, cough, wheezing, and pleuritic chest pain, Abdomen/GI: Negative for abdominal pain, nausea, vomiting, diarrhea, and constipation, Back: Negative for injury and pain, MS/Extremity: Negative for injury and deformity, Skin: Negative for injury, rash, and discoloration, Neuro: Negative for headache, weakness, numbness, tingling, and seizure. 09:31 : Positive for urinary symptoms, hematuria. Exam: 09:30 Head/Face: Normocephalic, atraumatic. snw 09:30 ENT: Nares patent. No nasal discharge, no septal abnormalities noted. Tympanic membranes are normal and external auditory canals are clear. Oropharynx with no redness, swelling, or masses, exudates, or evidence of obstruction, uvula midline. Mucous membranes moist. Neck: Trachea midline, no thyromegaly or masses palpated, and no cervical lymphadenopathy. Supple, full range of motion without nuchal rigidity, or vertebral point tenderness. No Meningismus. Chest/axilla: Normal chest wall appearance and motion. Nontender with no deformity. No lesions are appreciated. 09:30 Respiratory: Lungs have equal breath sounds bilaterally, clear to auscultation and percussion. No rales, rhonchi or wheezes noted. No increased work of breathing, no retractions or nasal flaring. Abdomen/GI: Soft, non-tender, with normal bowel sounds. No distension or tympany. No guarding or rebound. No evidence of tenderness throughout. Back: No spinal tenderness. No costovertebral tenderness. Full range of motion. Skin: Warm, dry with normal turgor. Normal color with no rashes, no lesions, and no evidence of cellulitis. MS/ Extremity: Pulses equal, no cyanosis. Neurovascular intact. Full, normal range of motion. Neuro: Awake and alert, GCS 15, oriented to person, place, time, and situation. Cranial nerves II-XII grossly intact. Motor strength 5/5 in all extremities. Sensory grossly intact. Cerebellar exam normal. Normal gait. Psych: Awake, alert, with orientation to person, place and time. Behavior, mood, and affect are within normal limits. 09:30 Constitutional: The patient appears alert, anxious. 09:30 Eyes: Periorbital structures: appear normal, Pupils: no acute changes, Extraocular movements: no acute changes, Conjunctiva: pale, Sclera: icterus, is present. 09:30 Cardiovascular: Rate: tachycardic, Rhythm: regular. Vital Signs: 09:03 BP 113 / 78; Pulse 125; Resp 20 S; Temp 99.2(O); Pulse Ox 98% on R/A; Weight 117.93 kg; iw Height 5 ft. 10 in. (177.80 cm); Pain 7/10; 10:15 BP 113 / 62; Pulse 136; Resp 22; Temp 101(O); Pulse Ox 97% on R/A; em 10:28 BP 113 / 62; Pulse 139; Resp 20; Temp 101.2(O); Pulse Ox 97% on R/A; mh5 11:40 BP 97 / 67; Pulse 135; Resp 20; Temp 99.5(O); Pulse Ox 96% on R/A; Pain 4/10; em 12:18 BP 108 / 74; Pulse 120; Resp 18; Pulse Ox 99% on R/A; em 09:03 Body Mass Index 37.31 (117.93 kg, 177.80 cm) iw MDM: 08:54 Patient medically screened. snw 10:02 Data reviewed: vital signs, nurses notes. Data interpreted: Pulse oximetry: on room air snw is 98 %. Counseling: I had a detailed discussion with the patient and/or guardian regarding: the historical points, exam findings, and any diagnostic results supporting the discharge/admit diagnosis, lab results, the need for outpatient follow up, for definitive care, to return to the emergency department if symptoms worsen or persist or if there are any questions or concerns that arise at home. Physician consultation: Karma Nelson MD was called at 10:03, was contacted at 10:03, regarding admission, to the medical/surgical unit. 05/03 08:54 Order name: Urine Culture [facility] 05/03 08:54 Order name: Urine Microscopic Only; Complete Time: 09:26 snw 05/03 08:54 Order name: Urine Culture [facility] 05/03 09:09 Order name: Basic Metabolic Panel; Complete Time: 10:55 snw 05/03 09:09 Order name: CBC with Diff snw 05/03 09:09 Order name: Hepatic Function; Complete Time: 10:55 snw 05/03 09:09 Order name: Lipase; Complete Time: 10:55 snw 05/03 09:09 Order name: CT Stone Protocol; Complete Time: 09:52 snw 05/03 09:09 Order name: Blood Culture Adult (2) snw 05/03 09:09 Order name: PT-INR; Complete Time: 10:55 snw 05/03 09:09 Order name: Ptt, Activated; Complete Time: 10:55 snw 05/03 09:16 Order name: Urine Dipstick--Ancillary (enter results); Complete Time: 09:26 eb 05/03 09:09 Order name: IV Saline Lock; Complete Time: 09:55 snw 05/03 09:09 Order name: Labs collected and sent; Complete Time: 09:55 snw 05/03 09:59 Order name: EKG; Complete Time: 10:01 snw 05/03 09:59 Order name: EKG - Nurse/Tech; Complete Time: 10:11 snw Administered Medications: 10:11 Drug: NS 0.9% 1000 ml Route: IV; Rate: 1 bolus; Site: right antecubital; em 11:56 Follow up: IV Status: Completed infusion; IV Intake: 1000ml em 10:20 Drug: Rocephin - (cefTRIAXone) 1 grams Route: IVPB; Infused Over: 30 mins; Site: right iw antecubital; 10:30 Follow up: Response: No adverse reaction; IV Status: Completed infusion; IV Intake: 10mlem 10:21 Drug: ProTONIX 40 mg Route: IVP; Site: right antecubital; iw 11:56 Follow up: Response: No adverse reaction; Pain is decreased em 10:30 Drug: [place] 5 mg-325 mg 1 tabs Route: PO; em 11:56 Follow up: Response: No adverse reaction; Pain is decreased em 10:30 Drug: Tylenol 650 mg Route: PO; em 11:56 Follow up: Response: No adverse reaction; Temperature is decreased em 11:50 Drug: NS 0.9% with KCl 40 mEq/L 1000 ml Route: IV; Rate: 200 ml/hr; Site: right em antecubital; 12:18 Follow up: Response: No adverse reaction; IV Status: Infusion continued upon admission; em IV Intake: 50ml 11:57 Drug: NS 0.9% 1000 ml Route: IV; Rate: 1 bolus; Site: right antecubital; em 12:19 Follow up: IV Status: Infusion continued upon admission; IV Intake: 500ml em 12:21 Drug: NS 0.9% 1000 ml Route: IV; Rate: 250 ml/hr; Site: right antecubital; em Disposition: 12:38 Co-signature as Attending Physician, Jerry Alvarez MD. rn Disposition: 05/03/18 10:02 Hospitalization ordered by Karma Nelson for Observation. Preliminary diagnosis are Acute Pyelonephritis, Fever presenting with conditions classified elsewhere. - Bed requested for Telemetry/MedSurg (observation). - Status is Observation. em - Condition is Stable. - Problem is new. - Symptoms have worsened. UTI on Admission? Yes Signatures: Dispatcher [employer] EDJesi Juan RN RN dw Kerri Lynn, BIGHT MAKER-C BIGHT MAKER-Csnw Jah Swenson, LAMINATING MACHINE OPERATOR HELPER LAMINATING MACHINE OPERATOR HELPER em Lavern Catalan RN RN Jerry Alvarez MD MD rn long term care: (The following items were deleted from the chart) 09: 08:54 Urine Test ordered. [facility] 09:23 08:54 Urine Dipstick-Ancillary ordered. [facility] 11:06 10:02 Hospitalization Ordered by Karma Nelson MD for Observation. Preliminary diagnosis dw is Acute Pyelonephritis; Fever presenting with conditions classified elsewhere. Bed requested for Telemetry/MedSurg (observation). Status is Observation. Condition is Stable. Problem is new. Symptoms have worsened. UTI on Admission? Yes. [facility] 12:30 11:06 05/03/2018 10:02 Hospitalization Ordered by Karma Nelson MD for Observation. em Preliminary diagnosis is Acute Pyelonephritis; Fever presenting with conditions classified elsewhere. Bed requested for Telemetry/MedSurg (observation). Status is Observation. Condition is Stable. Problem is new. Symptoms have worsened. UTI on Admission? Yes. dw
--- NOTE | 2018-05-03 10:03 | ER ---
Nurse's Notes [facility] Name: Rajan Bardales Age: 38 yrs Sex: Male : 1980 Arrival Date: 05/03/2018 Time: 08:49 Bed 17 Private MD: Diagnosis: Acute Pyelonephritis;Fever presenting with conditions classified elsewhere Presentation: 05/03 09:01 Presenting complaint: Patient states: c/o body aches, fever, pain with urination, iw strong smelling urine, dark urine X 2 days, denies vomiting. Transition of care: patient was not received from another setting of care. Onset of symptoms was May 01, 2018. Risk Assessment: Do you want to hurt yourself or someone else? Patient reports no desire to harm self or others. Initial Sepsis Screen: Does the patient meet any 2 criteria? No. Patient's initial sepsis screen is negative. Does the patient have a suspected source of infection? No. Patient's initial sepsis screen is negative. Care prior to arrival: None. 09:01 Method Of Arrival: Ambulatory iw 09:01 Acuity: JALEESA 3 iw Historical: - Allergies: 09:03 No Known Allergies; iw - Home Meds: 09:03 None [Active]; iw - PMHx: 09:03 None; iw - PSHx: 09:03 None; iw - Immunization history:: Adult Immunizations not up to date. - Social history:: Smoking status: Patient uses tobacco products, smokes one pack cigarettes per day. - Ebola Screening: : Patient negative for fever greater than or equal to 101.5 degrees Fahrenheit, and additional compatible Ebola Virus Disease symptoms Patient denies exposure to infectious person Patient denies travel to an Ebola-affected area in the 21 days before illness onset No symptoms or risks identified at this time. Screenin:33 Abuse screen: Denies threats or abuse. Nutritional screening: No deficits noted. em Tuberculosis screening: No symptoms or risk factors identified. Fall Risk None identified. Assessment: 09:48 General: Appears uncomfortable, Behavior is cooperative, restless, Reports chills for em fever for. Pain: Complains of pain in left low back and right low back Pain currently is 7 out of 10 on a pain scale. Pain began 2-3 days ago. Neuro: Level of Consciousness is awake, alert, obeys commands, Oriented to person, place, time, situation. Cardiovascular: Rhythm is sinus tachycardia. Respiratory: Airway is patent Respiratory effort is even, unlabored, Respiratory pattern is regular, symmetrical. GI: Abdomen is flat, Abd is soft and non tender X 4 quads. Patient currently denies nausea, vomiting. : Reports burning with urination. Derm: Skin is intact, Skin is diaphoretic, Skin is pale, Skin temperature is warm. Musculoskeletal: Range of motion: intact in all extremities. 10:20 Reassessment: Patient appears in no apparent distress at this time. Patient and/or em family updated on plan of care and expected duration. Pain level reassessed. skin pale, warm, clammy, A\T\O 4, reports feeling hot, provider notified, new medication orders received. 11:45 Reassessment: Patient appears in no apparent distress at this time. Patient and/or em family updated on plan of care and expected duration. Pain level reassessed. BP 97/67, HR 135, A\T\O4, skin pale, warm and clammy, provider notified, new medication orders Patient states feeling better. Vital Signs: 09:03 BP 113 / 78; Pulse 125; Resp 20 S; Temp 99.2(O); Pulse Ox 98% on R/A; Weight 117.93 kg; iw Height 5 ft. 10 in. (177.80 cm); Pain 7/10; 10:15 BP 113 / 62; Pulse 136; Resp 22; Temp 101(O); Pulse Ox 97% on R/A; em 10:28 BP 113 / 62; Pulse 139; Resp 20; Temp 101.2(O); Pulse Ox 97% on R/A; mh5 11:40 BP 97 / 67; Pulse 135; Resp 20; Temp 99.5(O); Pulse Ox 96% on R/A; Pain 4/10; em 12:18 BP 108 / 74; Pulse 120; Resp 18; Pulse Ox 99% on R/A; em 09:03 Body Mass Index 37.31 (117.93 kg, 177.80 cm) ED Course: 08:49 Patient arrived in ED. rg4 08:53 Ker[facility] Lynn [facility]C [facility]. snw 08:53 Jerry Alvarez MD is Attending Physician. snw 09:03 Triage completed. iw 09:03 Arm band placed on. iw 09:13 Jah Swenson LVN is Primary Nurse. em 09:24 CT completed. Patient tolerated procedure well. Patient moved to CT via wheelchair. vr Patient moved back from CT. 09:25 CT Stone Protocol In Process Unspecified. EDMS 09:28 Urine collected: clean catch specimen, tea colored. 5 09:29 Urine Culture Sent. 5 09:30 Urine Culture Sent. 5 09:45 Initial lab(s) drawn, by vt, sent to lab. First set of blood cultures drawn by vt. 5 09:53 Inserted saline lock: 20 gauge in right antecubital area, using aseptic technique. [facility] Blood collected. 09:54 Patient has correct armband on for positive identification. Bed in low position. Call [facility] light in reach. Side rails up X 1. Adult w/ patient. Warm blanket given. Pulse ox on. NIBP on. 09:55 Ptt, Activated Sent. 5 09:55 PT-INR Sent. 5 09:55 Blood Culture Adult (2) Sent. 5 09:55 Basic Metabolic Panel Sent. 5 09:55 CBC with Diff Sent. 5 09:55 Hepatic Function Sent. 5 09:55 Lipase Sent. [facility] 10:00 Karma Nelson MD is Hospitalizing Provider. snw 10:00 Second set of blood cultures drawn by vt. [facility] 10:25 EKG done, by eye technician. reviewed by Kerri JEFFERSON. 3 12:11 No provider procedures requiring assistance completed. Patient admitted, IV remains in em place. Administered Medications: 10:11 Drug: NS 0.9% 1000 ml Route: IV; Rate: 1 bolus; Site: right antecubital; em 11:56 Follow up: IV Status: Completed infusion; IV Intake: 1000ml em 10:20 Drug: Rocephin - (cefTRIAXone) 1 grams Route: IVPB; Infused Over: 30 mins; Site: right iw antecubital; 10:30 Follow up: Response: No adverse reaction; IV Status: Completed infusion; IV Intake: 10mlem 10:21 Drug: ProTONIX 40 mg Route: IVP; Site: right antecubital; iw 11:56 Follow up: Response: No adverse reaction; Pain is decreased em 10:30 Drug: Howard 5 mg-325 mg 1 tabs Route: PO; em 11:56 Follow up: Response: No adverse reaction; Pain is decreased em 10:30 Drug: Tylenol 650 mg Route: PO; em 11:56 Follow up: Response: No adverse reaction; Temperature is decreased em 11:50 Drug: NS 0.9% with KCl 40 mEq/L 1000 ml Route: IV; Rate: 200 ml/hr; Site: right em antecubital; 12:18 Follow up: Response: No adverse reaction; IV Status: Infusion continued upon admission; em IV Intake: 50ml 11:57 Drug: NS 0.9% 1000 ml Route: IV; Rate: 1 bolus; Site: right antecubital; em 12:19 Follow up: IV Status: Infusion continued upon admission; IV Intake: 500ml em 12:21 Drug: NS 0.9% 1000 ml Route: IV; Rate: 250 ml/hr; Site: right antecubital; em Intake: 10:30 IV: 10ml; Total: 10ml. em 11:56 IV: 1000ml; Total: 1010ml. em 12:18 IV: 50ml; Total: 1060ml. em 12:19 IV: 500ml; Total: 1560ml. em Outcome: 10:02 Decision to Hospitalize by Provider. snw 12:11 Admitted to Med/surg accompanied by tech, via wheelchair, room 222, with chart, Report em called to LAUREN Mac 12:11 Condition: good 12:11 Instructed on the need for admit, Demonstrated understanding of instructions. 12:30 Patient left the ED. em Signatures: Dispatcher [employer] EDKerri Aguirre, NIMA-C MECHANICAL DRAWING TEACHER-Csnw Jah Swenson, ROUGHENER ROUGHENER em Lavern Catalan, LAUREN Allen, Macey Casanova Maria 5 Jud Snyder3 Corrections: (The following items were deleted from the chart) 12:05 11:45 Reassessment: Patient appears in no apparent distress at this time. Patient em and/or family updated on plan of care and expected duration. Pain level reassessed. BP 97/67, HR 135, provider notified, new medication orders Patient states feeling better. em 12:12 11:45 Reassessment: Patient appears in no apparent distress at this time. Patient em and/or family updated on plan of care and expected duration. Pain level reassessed. BP 97/67, HR 135, A\T\O4, skin pale and warm clammy, provider notified, new medication orders Patient states feeling better. em
[2018-05-03] MEDS ORDERED: CEFTRIAXONE/SWI 1gm 1 GM/10 ML SYR ONE (10:14)
[2018-05-03] MEDS ORDERED: PANTOPRAZOLE 40 MG INJ ONE (10:14)
[2018-05-03] MEDS ORDERED: NA CHLORIDE 0.9% 1,000 ML ONE ×3 (10:14→12:31)
[2018-05-03 10:32] LABS: Albumin 2.5 g/dL (3.4-5.0); Bilirubin Direct 0.8 mg/dL (0-0.2); Bilirubin Total 1.2 mg/dL (0.2-1.0); Protein, Total 7.1 g/dL (6.4-8.2)
[2018-05-03] MEDS ORDERED: ACETAMINOPHEN 325 MG TABLET ONE (10:35)
[2018-05-03] MEDS ORDERED: HYDROCODONE/APAP 5/325 MG TAB ONE (10:36)
[2018-05-03 10:39] LABS: Protime INR 1.46
[2018-05-03] MEDS ORDERED: NS KCL 40MEQ 40 MEQ/1,000 ML BAG IV SCH (11:30)
[2018-05-03 13:02] VITALS: BMI 37.3
--- NOTE | 2018-05-03 13:59 | EKG ---
Test Date: 2018-05-03 Test Time: 10:06:16 Bench Loom Weaver: ARMAAN MEASUREMENT RESULTS: Intervals: Rate: 127 NM: 126 QRSD: 92 QT: 288 QTc: 418 [place]: P: 66 NM: 126 QRS: 73 T: 19 INTERPRETIVE STATEMENTS: Sinus tachycardia ST & T wave abnormality, consider lateral ischemia Abnormal ECG Compared to ECG 09/11/2017 17:36:34 ST (T wave) deviation now present Possible ischemia now present Sinus rhythm no longer present Sinus arrhythmia no longer present T-wave abnormality no longer present Electronically Signed On 05-03-18 13:58:34 RESPIRATORY CARE ASSISTANT by Shoaib Benavides
[2018-05-03] MEDS ORDERED: POTASSIUM CL SA 10 MEQ TAB PO ONE ×2 (14:30→21:47)
[2018-05-03] MEDS: ENOXAPARIN 40 MG/0.4 ML SQ SCH (16:14)
[2018-05-03] MEDS ORDERED: TRAMADOL HCL 50 MG TAB PO PRN (17:38)
[2018-05-03] MEDS: ACETAMINOPHEN 500 MG TAB PO PRN ×2 (17:45→23:55)
--- NOTE | 2018-05-03 17:55 | P.HP ---
Certification for Inpatient Patient admitted to: Observation Practitioner: I am a practitioner with admitting privileges, knowledge of patient current condition, hospital course, and medical plan of care. Services: Services provided to patient in accordance with Admission requirements found in Title 42 Section 412.3 of the Code of Federal Regulations Patient History Date of Service: 05/03/18 Reason for admission: Bilateral flank pain History of Present Illness: This is a 38-year-old male with history of obesity and tobacco use admitted for bilateral flank pain. Patient stated that he has been having bilateral flank pain for the past 2-3 days, progressively worsening. After the aching pain, . Associated with dysuria, subjective fevers at home along with chills. In the ED, CT abdomen positive for enlarged right kidney with perinephric fat stranding consistent with pyelonephritis, no abscess or hydronephrosis. He was given 1 dose of Rocephin right upper and 1 L of IV fluids. Allergies No Known Allergies Allergy (Verified 05/03/18 13:01) Home Medications: NK [No Home Meds] 05/03/18 - Past Medical/Surgical History Diabetic: No -: GERD -: tobacco abuse -: obesity - Family History Father -: Hypertension, Diabetes - Social History Smoking Status: Current some day smoker Alcohol use: No CD- Drugs: No Caffeine use: Yes Place of Residence: Home Review of Systems 10-point ROS is otherwise unremarkable Physical Examination - Vital Signs Temperature: 99.8 F Blood Pressure: 115/60 Pulse: 20 Respirations: 20 Pulse Ox (%): 96 - Physical Exam General: Alert, In no apparent distress, Oriented x3 HEENT: Atraumatic, PERRLA, Mucous membr. moist/pink, EOMI, Sclerae nonicteric Neck: Supple, 2+ carotid pulse no bruit, No LAD, Without JVD or thyroid abnormality Respiratory: Clear to auscultation bilaterally, Normal air movement Cardiovascular: Regular rate/rhythm, Normal S1 S2 Gastrointestinal: Normal bowel sounds, No tenderness Musculoskeletal: Other (Positive CVA tenderness, right side) Integumentary: No rashes Neurological: Normal gait, Normal speech, Normal strength at 5/5 x4 extr, Normal tone, Normal affect Lymphatics: No axilla or inguinal lymphadenopathy - Studies Laboratory Data (last 24 hrs) 05/03/18 09:45: PT 17.3 H, INR 1.46, APTT 28.6 05/03/18 09:45: WBC 18.5 H, Hgb COAL GRADER, Hct COAL GRADER, Plt Count COAL GRADER 05/03/18 09:45: Sodium 136, Potassium 3.0 L, BUN 19 H, Creatinine 1.56 H, Glucose 120 H, Total Bilirubin 1.2 H, AST 15, ALT 35, Alkaline Phosphatase 179 H , Lipase 52 L Assessment and Plan - Problems (Diagnosis) (1) Acute pyelonephritis Current Visit: Yes Status: Acute (2) Tachycardia Current Visit: Yes Status: Acute (3) GERD (gastroesophageal reflux disease) Onset Date: 09/12/17 Current Visit: No Status: Chronic Qualifiers: (4) Obesity Onset Date: 09/12/17 Current Visit: No Status: Chronic Qualifiers: (5) Tobacco abuse Onset Date: 09/12/17 Current Visit: No Status: Chronic - Plan Patient Problems: Acute pyelonephritis (Acute) N10 Tachycardia (Acute) R00.0 Continue IV fluids. Continue IV antibiotics with Rocephin 1 g daily Pain control Tachycardiac secondary to pain; normal sinus rhythm GERD (gastroesophageal reflux disease) (Chronic 09/12/17) K21.9 Continue home Protonix Obesity (Chronic 09/12/17) E66.9 BMI 37.3 Tobacco abuse (Chronic 09/12/17) Z72.0 Counseled DVT prophylaxis: Encourage ambulation GI prophylaxis: Protonix, home medication Diet: Heart healthy Disposition: Pending symptomatic improvement - Advance Directives Does patient have a Living Will: No Does patient have a Durable POA for Healthcare: No Time Spent Managing Pts Care (In Minutes): 55
[2018-05-03] MEDS: NACHLORIDE 0.45% 1,000 ML IV SCH (18:17)
[2018-05-04] MEDS: HYDROCODONE/APAP 10/325 TAB PO PRN ×4 (01:11→23:01)
[2018-05-04] MEDS: NACHLORIDE 0.45% 1,000 ML IV SCH ×3 (02:20→21:41)
[2018-05-04] MEDS: PANTOPRAZOLE 40MG TABLET PO SCH (05:16)
[2018-05-04 05:51] LABS: Absolute Lymphocytes (CBC) 0.7 K/uL (0.7-4.9); Absolute Monocytes 1.1 K/uL (0.1-1.3); Absolute Neutrophil 11.9 K/uL (1.8-8.0); Basophils % 0.4 % (0-1.3); Eosinophils % 0.3 % (0-4.4); Hematocrit 34.1 % (39.6-49.0); Lymphocytes % 4.9 % (15.3-44.8); MPV 8.9 fL (7.6-11.3); Monocytes % 7.8 % (3.3-12.3); RBC Red Blood Cell Count 3.87 M/uL (4.33-5.43)
[2018-05-04 05:56] LABS: Albumin 1.9 g/dL (3.4-5.0); Bilirubin Total 0.8 mg/dL (0.2-1.0); Potassium 3.4 mmol/L (3.5-5.1); Protein, Total 5.7 g/dL (6.4-8.2)
[2018-05-04] MEDS ORDERED: POTASSIUM 25 MEQ EFFERV TAB PO ONE (06:01)
[2018-05-04] MEDS: CEFTRIAXONE/SWI 1gm 1 GM/10 ML SYR IV SCH (08:38)
[2018-05-04] MEDS: ACETAMINOPHEN 500 MG TAB PO PRN ×2 (11:31→22:20)
[2018-05-04] MEDS ORDERED: POTASSIUM CL SA 10 MEQ TAB PO ONE (15:00)
[2018-05-04] MEDS: ENOXAPARIN 40 MG/0.4 ML SQ SCH (15:50)
--- NOTE | 2018-05-04 17:26 | P.PN ---
Subjective Date of Service: 05/04/18 Chief Complaint: Bilateral flank pain Patient seen and examined at bedside. No family at bedside. Chart reviewed and case discussed with nursing staff. Slightly improved pain and dysuria. Review of Systems 10-point ROS is otherwise unremarkable Physical Examination - Vital Signs Temperature: 97.8 F Blood Pressure: 178/73 Pulse: 107 Respirations: 17 Pulse Ox (%): 96 - Physical Exam General: Alert, In no apparent distress, Oriented x3 HEENT: Atraumatic, PERRLA, EOMI Neck: Supple, JVD not distended Respiratory: Clear to auscultation bilaterally, Normal air movement Cardiovascular: Regular rate/rhythm, Normal S1 S2 Gastrointestinal: Normal bowel sounds, No tenderness Musculoskeletal: Tenderness (CVA tenderness) Integumentary: No rashes Neurological: Normal speech, Normal tone, Normal affect Lymphatics: No axilla or inguinal lymphadenopathy - Studies Laboratory Data (last 24 hrs) 05/04/18 04:14: Sodium 138, Potassium 3.4 L, BUN 11, Creatinine 1.18, Glucose 101, Total Bilirubin 0.8, AST 16, ALT 27, Alkaline Phosphatase 144 H 05/04/18 04:14: WBC 13.8 H D, Hgb 11.7 L, Hct 34.1 L, Plt Count 202 05/03/18 21:04: Potassium 3.6 Assessment And Plan - Current Problems (Diagnosis) (1) Acute pyelonephritis Current Visit: Yes Status: Acute (2) Tachycardia Current Visit: Yes Status: Acute (3) GERD (gastroesophageal reflux disease) Onset Date: 09/12/17 Current Visit: No Status: Chronic Qualifiers: (4) Obesity Onset Date: 09/12/17 Current Visit: No Status: Chronic Qualifiers: (5) Tobacco abuse Onset Date: 09/12/17 Current Visit: No Status: Chronic - Plan Patient Problems: Acute pyelonephritis (Acute) N10 Tachycardia (Acute) R00.0 Continue IV fluids. Continue IV antibiotics with Rocephin 1 g daily Pain control Tachycardiac secondary to pain; normal sinus rhythm - improving Pending cultures GERD (gastroesophageal reflux disease) (Chronic 09/12/17) K21.9 Continue home Protonix Obesity (Chronic 09/12/17) E66.9 BMI 37.3 Tobacco abuse (Chronic 09/12/17) Z72.0 Counseled DVT prophylaxis: Encourage ambulation GI prophylaxis: Protonix, home medication Diet: Heart healthy Disposition: Pending symptomatic improvement
[2018-05-05] MEDS: PANTOPRAZOLE 40MG TABLET PO SCH (05:07)
[2018-05-05 05:38] LABS: Absolute Lymphocytes (CBC) 0.8 K/uL (0.7-4.9); Absolute Monocytes 0.8 K/uL (0.1-1.3); Absolute Neutrophil 5.3 K/uL (1.8-8.0); Basophils % 0.6 % (0-1.3); Eosinophils % 1.3 % (0-4.4); Hematocrit 35.3 % (39.6-49.0); MPV 8.3 fL (7.6-11.3); Monocytes % 11.6 % (3.3-12.3); RBC Red Blood Cell Count 4.01 M/uL (4.33-5.43)
[2018-05-05 06:00] LABS: Bilirubin Total 0.7 mg/dL (0.2-1.0); Magnesium 1.8 mg/dL (1.8-2.4); Phosphorus 2.8 mg/dL (2.5-4.9); Potassium 3.2 mmol/L (3.5-5.1)
[2018-05-05] MEDS: KCL 20 MEQ/100 mL IVPB 20 MEQ/100 ML BAG IV SCH ×2 (06:27→08:07)
[2018-05-05] MEDS ORDERED: MAGNESIUM SULFATE 1 gm IVPB 1 GM/100 ML BAG IV ONE (09:00)
[2018-05-05] MEDS ORDERED: POTASSIUM 25 MEQ EFFERV TAB PO ONE (09:00)
[2018-05-05] MEDS: HYDROCODONE/APAP 10/325 TAB PO PRN ×2 (09:06→17:48)
[2018-05-05] MEDS: CEFTRIAXONE/SWI 1gm 1 GM/10 ML SYR IV SCH (09:07)
[2018-05-05] MEDS: NACHLORIDE 0.45% 1,000 ML IV SCH ×2 (09:08→19:55)
--- NOTE | 2018-05-05 11:37 | P.PN ---
Subjective Date of Service: 05/05/18 Chief Complaint: Bilateral flank pain Subjective: No C/O voiced, Ambulating, Improving Patient seen and examined at bedside. No family at bedside. Chart reviewed and case discussed with nursing staff. Slightly improved pain and dysuria. Review of Systems 10-point ROS is otherwise unremarkable Physical Examination - Vital Signs Temperature: 98.5 F Blood Pressure: 151/85 Pulse: 109 Respirations: 18 Pulse Ox (%): 96 - Physical Exam General: Alert, In no apparent distress, Oriented x3 HEENT: Atraumatic, PERRLA, EOMI Neck: Supple, JVD not distended Respiratory: Clear to auscultation bilaterally, Normal air movement Cardiovascular: Regular rate/rhythm, Normal S1 S2 Gastrointestinal: Normal bowel sounds, No tenderness Musculoskeletal: No tenderness Integumentary: No rashes Neurological: Normal speech, Normal tone, Normal affect Lymphatics: No axilla or inguinal lymphadenopathy Assessment And Plan - Current Problems (Diagnosis) (1) Acute pyelonephritis Current Visit: Yes Status: Acute (2) Tachycardia Current Visit: Yes Status: Acute (3) GERD (gastroesophageal reflux disease) Onset Date: 09/12/17 Current Visit: No Status: Chronic Qualifiers: (4) Obesity Onset Date: 09/12/17 Current Visit: No Status: Chronic Qualifiers: (5) Tobacco abuse Onset Date: 09/12/17 Current Visit: No Status: Chronic (6) Bacteremia due to Escherichia coli Current Visit: Yes Status: Acute - Plan Patient Problems: Acute pyelonephritis (Acute) N10 Tachycardia (Acute) R00.0 Bacteremia, gram-negative rods. Cultures pending Continue IV fluids. Continue IV antibiotics with Rocephin 1 g daily, day # 3 Pain control Tachycardiac secondary to pain; normal sinus rhythm - improving Urine cultures positive for E. coli sensitive to oral antibiotics. Blood cultures prelim with gram-negative rods, cultures still pending. Will continue to follow up. GERD (gastroesophageal reflux disease) (Chronic 09/12/17) K21.9 Continue home Protonix Obesity (Chronic 09/12/17) E66.9 BMI 37.3 Tobacco abuse (Chronic 09/12/17) Z72.0 Counseled DVT prophylaxis: Encourage ambulation GI prophylaxis: Protonix, home medication Diet: Heart healthy Disposition: Pending symptomatic improvement
[2018-05-05] MEDS: ENOXAPARIN 40 MG/0.4 ML SQ SCH (17:48)
[2018-05-05] MEDS ORDERED: POTASSIUM CL SA 10 MEQ TAB PO ONE (23:09)
[2018-05-06] MEDS: PANTOPRAZOLE 40MG TABLET PO SCH (05:16)
[2018-05-06] MEDS: NACHLORIDE 0.45% 1,000 ML IV SCH (05:48)
[2018-05-06 06:08] LABS: Absolute Neutrophil 4.4 K/uL (1.8-8.0); Basophils % 0.7 % (0-1.3); Hematocrit 37.3 % (39.6-49.0); Lymphocytes % 15.7 % (15.3-44.8); MPV 8.4 fL (7.6-11.3); Monocytes % 14.6 % (3.3-12.3); RBC Red Blood Cell Count 4.25 M/uL (4.33-5.43)
[2018-05-06 06:16] LABS: Albumin 2.1 g/dL (3.4-5.0); Bilirubin Total 0.6 mg/dL (0.2-1.0); Magnesium 2.1 mg/dL (1.8-2.4); Potassium 3.6 mmol/L (3.5-5.1); Protein, Total 6.7 g/dL (6.4-8.2)
[2018-05-06] MEDS ORDERED: POTASSIUM CL SA 10 MEQ TAB PO ONE (06:17)
[2018-05-06] MEDS: HYDROCODONE/APAP 10/325 TAB PO PRN (10:00)
[2018-05-06] MEDS: CEFTRIAXONE/SWI 1gm 1 GM/10 ML SYR IV SCH (10:01)
[2018-05-06 12:05] VITALS: O2SAT 95
--- NOTE | 2018-05-06 13:32 | P.DS ---
Admission Date: 05/04/18 Discharge Date: 05/06/18 Disposition: ROUTINE DISCHARGE Discharge Condition: GOOD Reason for Admission: Bilateral flank pain - Problems (1) Acute pyelonephritis Onset Date: 05/06/18 Current Visit: Yes Status: Acute (2) Tachycardia Onset Date: 05/06/18 Current Visit: Yes Status: Acute (3) GERD (gastroesophageal reflux disease) Onset Date: 09/12/17 Current Visit: No Status: Chronic Qualifiers: (4) Obesity Onset Date: 09/12/17 Current Visit: No Status: Chronic Qualifiers: (5) Tobacco abuse Onset Date: 09/12/17 Current Visit: No Status: Chronic (6) Bacteremia due to Escherichia coli Onset Date: 05/06/18 Current Visit: Yes Status: Acute Brief History of Present Illness: This is a 38-year-old male with history of obesity and tobacco use admitted for bilateral flank pain. Patient stated that he has been having bilateral flank pain for the past 2-3 days, progressively worsening. After the aching pain, 10. Associated with dysuria, subjective fevers at home along with chills. In the ED, CT abdomen positive for enlarged right kidney with perinephric fat stranding consistent with pyelonephritis, no abscess or hydronephrosis. He was given 1 dose of Rocephin right upper and 1 L of IV fluids. Hospital Course: Acute pyelonephritis (Acute) N10 Tachycardia (Acute) R00.0 Bacteremia, gram-negative rods. Cultures pending Patient was admitted to the floor with tele. He was started on IV fluids and IV antibiotics with Rocephin (4 days total). His pain was controlled with PO tramadol. Urine cultures were positive for E. coli and GBS sensitive to oral antibiotics. Blood cultures also positive for E. coli. patient converted to levaquin PO 500 Discharged with instructions to complete 14 days course. Rx sent to pharmacy GERD (gastroesophageal reflux disease) (Chronic 09/12/17) K21.9 Stable Obesity (Chronic 09/12/17) E66.9 BMI 37.3 Lifestyle modifications including diet and exercise. Tobacco abuse (Chronic 09/12/17) Z72.0 Counseled on smoking cessation. Resources provided. Was noted multiple times going down with his girlfriend to smoke. Vital Signs/Physical Exam: Temp Pulse Resp BP Pulse Ox 98.3 F 107 H 20 139/87 97 05/06/18 08:00 05/06/18 08:00 05/06/18 08:00 05/06/18 08:00 05/06/18 08:00 General: Alert, In no apparent distress, Oriented x3 Laboratory Data at Discharge: WBC 6.6 K/uL (4.3-10.9) 05/06/18 05:44 Hgb 12.9 g/dL (13.6-17.9) L 05/06/18 05:44 Hct 37.3 % (39.6-49.0) L 05/06/18 05:44 Plt Count 247 K/uL (152-406) D 05/06/18 05:44 PT 17.3 SECONDS (9.5-12.5) H 05/03/18 09:45 INR 1.46 05/03/18 09:45 APTT 28.6 SECONDS (24.3-36.9) 05/03/18 09:45 Sodium 138 mmol/L (136-145) 05/06/18 05:44 Potassium 3.6 mmol/L (3.5-5.1) 05/06/18 05:44 BUN 12 mg/dL (7-18) 05/06/18 05:44 Creatinine 0.98 mg/dL (0.55-1.3) 05/06/18 05:44 Glucose 101 mg/dL (74-106) 05/06/18 05:44 Phosphorus 2.8 mg/dL (2.5-4.9) 05/05/18 05:12 Magnesium 2.1 mg/dL (1.8-2.4) 05/06/18 05:44 Total Bilirubin 0.6 mg/dL (0.2-1.0) 05/06/18 05:44 AST 23 U/L (15-37) 05/06/18 05:44 ALT 33 U/L (12-78) 05/06/18 05:44 Alkaline Phosphatase 192 U/L (45-117) H 05/06/18 05:44 Lipase 52 U/L (73-393) L 05/03/18 09:45 Home Medications: Levofloxacin [Levaquin] 500 mg PO DAILY #14 tablet 05/06/18 New Medications: Levofloxacin [Levaquin] 500 mg PO DAILY #14 tablet Patient Discharge Instructions: Please follow up with the primary care physician in 1 week. New medications: Levaquin, an antibiotic for your kidney infection. Please return to the emergency room for worsening symptoms Diet: Regular Activity: Ad yovanny Time spent managing pt's care (in minutes): 55
[2018-05-06 15:50] VITALS: BP 121/75; TEMP 98.6
== END 2018-05-06 13:48 | disposition home or self-care (01) | DRG 690 ==
LOC: ER 08:44 → ERHOLD 10:17 → 2ND 12:09 → OBSVTOIN 05-04 10:51
PROVIDERS: ADMIT Family Medicine; ATTEND Family Medicine
DX: N10 Acute pyelonephritis (principal); R78.81 Bacteremia; E66.9 Obesity, unspecified; R00.0 Tachycardia, unspecified; B96.20 Unspecified Escherichia coli [E. coli] as the cause of diseases classified elsewhere; K21.9 Gastro-esophageal reflux disease without esophagitis; F17.200 Nicotine dependence, unspecified, uncomplicated; Z68.37 Body mass index [BMI] 37.0-37.9, adult
CPT/HCPCS: 36415; 74176; 76377; 80048; 80053; 80076; 81003; 81015; 83605; 83690; 83735; 84100; 84132; 85025; 85610; 85730; 87040; 87077; 87086; 87088; 87186; 87205; 93005; 94760; 96361; 96374; 96375; 99285; C9113; G0378; J0696; J1650; J3475; J7030

== ENCOUNTER 2022-12-09 05:22 | Emergency (ER) | payer OTHER ==
[2022-12-09] MEDS ORDERED: ONDANSETRON 4 MG/2 ML VIAL ONE (05:52)
[2022-12-09] MEDS ORDERED: MORPHINE 4 MG/ML SYR ONE (05:52)
[2022-12-09] MEDS ORDERED: KETOROLAC 30 MG/ML INJ ONE (05:53)
[2022-12-09] MEDS ORDERED: NA CHLORIDE 0.9% 1,000 ML ONE (05:53)
[2022-12-09 06:08] LABS: Absolute Lymphocytes (CBC) 1.3 K/uL (0.7-4.9); Hematocrit 44.3 % (39.6-49.0); Lymphocytes % 20.3 % (15.3-44.8); MCV 88.2 fL (80-100); MPV 7.8 fL (7.6-11.3); Platelets 272 thou/uL (152-406); RBC Red Blood Cell Count 5.02 M/uL (4.33-5.43); Urine Bilirubin NEGATIVE (Negative); Urine Blood Negative (Negative); Urine Clarity Clear (Clear); Urine Color Colorless (Yellow); Urine Glucose NEGATIVE (Negative); Urine Protein NEGATIVE (Negative); Urine Urobilinogen Normal (Normal); Urine pH 7.5 (5.0-7.0)
[2022-12-09 06:35] LABS: Albumin 3.9 g/dL (3.4-5.0); Bilirubin Total 0.4 mg/dL (0.2-1.0); Potassium 3.7 mEq/L (3.5-5.1); Protein, Total 7.8 g/dL (6.4-8.2)
--- NOTE | 2022-12-09 07:05 | RAD REPORT ---
EXAM DESCRIPTION: CTAbdomen Pelvis W Contrast - 12/09/2022 6:47 am CLINICAL HISTORY: ABD PAIN COMPARISON: Stone Protocol dated 05/03/2018 TECHNIQUE: CT of the abdomen and pelvis was performed. All CT scans are performed using dose optimization technique as appropriate and may include automated exposure control or mA/KV adjustment according to patient size. FINDINGS: Lower chest: Mild circumferential thickened distal esophagus which may indicate mild esoph agitis. Liver: No acute abnormality or suspicious lesions. Biliary: No biliary ductal dilatation. Stomach: No significant focal abnormality. Duodenum: No significant focal abnormality. Pancreas: No significant abnormality. Spleen: No significant abnormality. Adrenal: No suspicious lesions. Kidney/ureter: No hydronephrosis. Punctate stone in lower pole right kidney. Retroperitoneum: No retroperitoneal adenopathy. Vascular: No aneurysm. Bowel: Normal appendix. No bowel obstruction.. Peritoneum: No ascites or free air. Bladder: Grossly unremarkable. Reproductive: No adnexal masses. Bones: No acute fracture. Other: n/a IMPRESSION: No acute intra-abdominal or pelvic finding. Normal appendix. Nonobstructing stone in the right kidney.
--- NOTE | 2022-12-09 07:18 | ER ---
Nurse's Notes [facility] Name: Rajan Bardales Age: 42 yrs Sex: Male : 1980 Arrival Date: 12/09/2022 Time: 05:22 Bed 14 Private MD: Diagnosis: Abdominal pain, unspecified;Lower abdominal pain, unspecified Presentation: 12/09 05:35 Chief complaint: Patient states: right loer quadrant pain radiating to groin x 2 days kl gradually worsening. Coronavirus screen: Vaccine status: Patient reports receiving the 2nd dose of the covid vaccine. Ebola Screen: Patient negative for fever greater than or equal to 101.5 degrees Fahrenheit, and additional compatible Ebola Virus Disease symptoms. Initial Sepsis Screen: Does the patient meet any 2 criteria? No. Patient's initial sepsis screen is negative. Does the patient have a suspected source of infection? No. Patient's initial sepsis screen is negative. Risk Assessment: Do you want to hurt yourself or someone else? Patient reports no desire to harm self or others. 05:35 Method Of Arrival: Ambulatory 05:35 Acuity: JALEESA 3 kl Triage Assessment: 05:37 General: Appears distressed, uncomfortable, Behavior is calm, cooperative. Pain: kl Complains of pain in right lower quadrant Pain radiates to groin and right femoral area Pain currently is 2 out of 10 on a pain scale. at worst was 10 out of 10 on a pain scale. Historical: - Allergies: 05:36 No Known Allergies; kl - PMHx: 05:36 None; kl - PSHx: 05:36 hernia repair; kl - Immunization history:: Adult Immunizations not up to date. - Social history:: Smoking status: Reported history of juuling and/or vaping. - Family history:: not pertinent. Screenin:28 Abuse screen: Denies threats or abuse. Denies injuries from another. Nutritional ha1 screening: No deficits noted. Tuberculosis screening: No symptoms or risk factors identified. 05:28 [facility] ED Fall Risk Assessment (Adult) History of falling in the last 3 months, ha1 including since admission No falls in past 3 months (0 pts) Confusion or Disorientation No (0 pts) Intoxicated or Sedated No (0 pts) Impaired Gait No (0 pts) Mobility Assist Device Used No (0 pt) Altered Elimination No (0 pt) Score/Fall Risk Level 0 - 2 = Low Risk Oriented to surroundings, Maintained a safe environment, Educated pt \T\ family on fall prevention, incl call for assistance when getting out of bed, Hourly rounding (assess needs \T\ fall precautionary measures) done. Assessment: 05:28 General: Appears uncomfortable, Behavior is calm, cooperative. Pain: Complains of pain ha1 in right lower quadrant Pain does not radiate. Pain currently is 10 out of 10 on a pain scale. Quality of pain is described as pressure, sharp, Aggravated by increased activity. Neuro: Level of Consciousness is awake, alert, obeys commands, Oriented to person, place, time, situation. Cardiovascular: Patient's skin is warm and dry. Respiratory: Airway is patent Respiratory effort is even, unlabored, Respiratory pattern is regular, symmetrical. GI: Abdomen is round non-distended, Bowel sounds present X 4 quads. Guarding noted in right lower quadrant Reports lower abdominal pain. Derm: Skin is pale. Musculoskeletal: Circulation, motion, and sensation intact. 06:15 Reassessment: Patient and/or family updated on plan of care and expected duration. Pain ha1 level reassessed. Patient is alert, oriented x 3, equal unlabored respirations, skin warm/dry/pink. pain 2/10 Patient states feeling better. Patient states symptoms have improved. 06:41 Reassessment: going to CT. ha1 07:46 Reassessment: Patient appears in no apparent distress at this time. Patient and/or ph family updated on plan of care and expected duration. Pain level reassessed. Patient is alert, oriented x 3, equal unlabored respirations, skin warm/dry/pink. Patient states feeling better. Patient states symptoms have improved. Vital Signs: 05:30 BP 126 / 62; Pulse 72; Resp 17 S; Pulse Ox 100% on R/A; ha1 05:35 BP 162 / 104; Pulse 88; Resp 18; Temp 98.2; Pulse Ox 99% ; Weight 113.4 kg (R); Height kl 5 ft. 10 in. ; 06:15 BP 122 / 59; Pulse 78; Resp 18 S; Pulse Ox 95% on R/A; ha1 07:46 BP 118 / 60; Pulse 76; Resp 18; Temp 98; Pulse Ox 99% on R/A; ph 05:35 Body Mass Index 35.87 (113.40 kg, 177.8 cm) ED Course: 05:27 Patient arrived in ED. jj6 05:28 Patient has correct armband on for positive identification. Bed in low position. Call ha1 light in reach. Side rails up X 1. 05:36 Triage completed. kl 05:50 Nannette Rader, RN is Primary Nurse. ha1 05:50 CBC with Diff Sent. ha1 05:50 CMP Sent. ha1 05:50 Lipase Sent. ha1 05:50 Urinalysis w/ reflexes Sent. ha1 05:57 Dany King MD is Attending Physician. sp4 06:49 CT Abd/Pelvis - IV Contrast Only In Process Unspecified. EDMS 07:07 Attending Physician role handed off by Dany King MD carlyle 07:07 Tone Navarro MD is Attending Physician. carlyle 07:09 Attending Physician role handed off by Tone Navarro MD sp4 07:09 Dany King MD is Attending Physician. sp4 07:46 No provider procedures requiring assistance completed. IV discontinued, intact, ph bleeding controlled, No redness/swelling at site. Pressure dressing applied. 07:47 Arm band placed on Patient placed in an exam room, on a stretcher. ph Administered Medications: 05:40 Drug: NS 0.9% IV 1000 ml Route: IV; Rate: 1 bolus; Site: right antecubital; ha1 05:40 Drug: Ondansetron IVP 4 mg Route: IVP; Site: right antecubital; ha1 05:42 Drug: TORadol - Ketorolac IVP 15 mg Route: IVP; Site: right antecubital; ha1 05:45 Drug: morphine IVP or IV 4 mg Route: IVP; Infused Over: 4 mins; Site: right antecubital;ha1 06:15 Follow up: Response: No adverse reaction; Pain is decreased; RASS: Alert and Calm (0) ha1 Medication: 07:47 VIS not applicable for this client. ph Outcome: 07:17 Discharge ordered by . sp4 07:47 Discharged to home ambulatory, with family. ph 07:47 Condition: good 07:47 Discharge instructions given to patient, Instructed on discharge instructions, follow up and referral plans. medication usage, Demonstrated understanding of instructions, follow-up care, medications, Prescriptions given X 2. 07:47 Patient left the ED. ph Signatures: Dispatcher [employer] EDMiesha Turcios RN RN kl Anderson, Corey, MD MD cha Hall, Patricia, RN RN ph Jeffries, Jennifer jj6 Nannette Rader RN RN ha1 Dany King MD MD sp4 Corrections: (The following items were deleted from the chart) 06:43 06:30 Reassessment: Patient and/or family updated on plan of care and expected ha1 duration. Pain level reassessed. Patient is alert, oriented x 3, equal unlabored respirations, skin warm/dry/pink. pain 2/10 Patient states feeling better. Patient states symptoms have improved. ha1
--- NOTE | 2022-12-09 07:18 | EDPHYS ---
Physician Documentation [facility] Name: Rajan Bardales Age: 42 yrs Sex: Male : 1980 Arrival Date: 12/09/2022 Time: 05:22 Bed 14 Private MD: ED Physician Dany King HPI: 12/09 06:12 This 42 yrs old Male presents to ER via Ambulatory with complaints of sp4 Abdominal Pain, Low Back Pain, Possible Kidney Stone. 07:09 42-year-old male presents with a cute onset right lower abdominal pain radiation to the sp4 right groin. Pain started 2 days ago and has intensified since then. . Historical: - Allergies: 05:36 No Known Allergies; kl - PMHx: 05:36 None; kl - PSHx: 05:36 hernia repair; kl - Immunization history:: Adult Immunizations not up to date. - Social history:: Smoking status: Reported history of juuling and/or vaping. - Family history:: not pertinent. ROS: 07:09 Constitutional: Negative for fever, chills, and weight loss, Abdomen/GI: Negative for sp4 nausea, vomiting, diarrhea, and constipation, positive abdominal pain with radiation into the right pelvis right groin 07:09 All other systems are negative. Exam: 07:09 Constitutional: This is a well developed, well nourished patient who is awake, alert, sp4 and in no acute distress. Head/Face: Normocephalic, atraumatic. Eyes: Pupils equal round and reactive to light, extra-ocular motions intact. Lids and lashes normal. Conjunctiva and sclera are not injected. Cornea within normal limits. Periorbital areas with no swelling, redness, or edema. ENT: Nares patent. No nasal discharge, no septal abnormalities noted. Tympanic membranes are normal and external auditory canals are clear. Oropharynx with no redness, swelling, or masses, exudates, or evidence of obstruction, uvula midline. Mucous membranes moist. Neck: Trachea midline, no thyromegaly or masses palpated, and no cervical lymphadenopathy. Supple, full range of motion without nuchal rigidity, or vertebral point tenderness. Chest/axilla: Normal chest wall appearance and motion. Nontender with no deformity. No lesions are appreciated. Cardiovascular: Regular rate and rhythm with a normal S1 and S2. No gallops, murmurs, or rubs. Normal PMI, no JVD. No pulse deficits. Respiratory: Lungs have equal breath sounds bilaterally, clear to auscultation and percussion. No rales, rhonchi or wheezes noted. No increased work of breathing, no retractions or nasal flaring. Abdomen/GI: Soft, with normal bowel sounds. No distension or tympany. No guarding or rebound. Positive right lower abdominal pain, Back: No spinal tenderness. No costovertebral tenderness. Male : Normal genitalia with no discharge or lesions. Normal testicular exam, Skin: Warm, dry with normal turgor. Normal color with no rashes, no lesions, and no evidence of cellulitis. MS/ Extremity: Pulses equal, no cyanosis. Neurovascular intact. Full, normal range of motion. Neuro: Awake and alert, GCS 15, oriented to person, place, time, and situation. Cranial nerves II-XII grossly intact. Motor strength 5/5 in all extremities. Sensory grossly intact. Psych: Awake, alert, with orientation to person, place and time. Behavior, mood, and affect are within normal limits Vital Signs: 05:30 BP 126 / 62; Pulse 72; Resp 17 S; Pulse Ox 100% on R/A; ha1 05:35 BP 162 / 104; Pulse 88; Resp 18; Temp 98.2; Pulse Ox 99% ; Weight 113.4 kg (R); Height kl 5 ft. 10 in. ; 06:15 BP 122 / 59; Pulse 78; Resp 18 S; Pulse Ox 95% on R/A; ha1 07:46 BP 118 / 60; Pulse 76; Resp 18; Temp 98; Pulse Ox 99% on R/A; ph 05:35 Body Mass Index 35.87 (113.40 kg, 177.8 cm) kl MDM: 05:58 Patient medically screened. sp4 07:09 ED course: FINDINGS: Lower chest: Mild circumferential thickened distal esophagus which sp4 may indicate mild esophagitis. Liver: No acute abnormality or suspicious lesions. Biliary: No biliary ductal dilatation. Stomach: No significant focal abnormality. Duodenum: No significant focal abnormality. Pancreas: No significant abnormality. Spleen: No significant abnormality. Adrenal: No suspicious lesions. Kidney/ureter: No hydronephrosis. Punctate stone in lower pole right kidney. Retroperitoneum: No retroperitoneal adenopathy. Vascular: No aneurysm. Bowel: Normal appendix. No bowel obstruction.. Peritoneum: No ascites or free air. Bladder: Grossly unremarkable. Reproductive: No adnexal masses. Bones: No acute fracture. Other: n/a IMPRESSION: No acute intra-abdominal or pelvic finding. Normal appendix. Nonobstructing stone in the right kidney. 07:16 Data reviewed: vital signs, nurses notes, lab test result(s), radiologic studies, CT sp4 scan. Consideration of Admission/Observation Escalation of care including admission/observation considered. ED course: Patient reports pain has completely gone after medications. CAT scan reveals no sign of acute intra-abdominal finding, normal appendix, nonobstructing stone in the right kidney. At this time patient is stable for discharge home. . 07:17 Patient medically screened. sp4 12/09 05:39 Order name: CBC with Diff; Complete Time: 06:34 kl 12/09 05:39 Order name: CMP; Complete Time: 06:50 kl 12/09 05:39 Order name: Lipase; Complete Time: 06:50 kl 12/09 05:39 Order name: Urinalysis w/ reflexes; Complete Time: 06:34 kl 12/09 05:39 Order name: CT Abd/Pelvis - IV Contrast Only; Complete Time: 07:12 kl 12/09 05:39 Order name: IV Saline Lock; Complete Time: 05:50 kl 12/09 05:39 Order name: Labs collected and sent; Complete Time: 05:50 kl Administered Medications: 05:40 Drug: NS 0.9% IV 1000 ml Route: IV; Rate: 1 bolus; Site: right antecubital; ha1 05:40 Drug: Ondansetron IVP 4 mg Route: IVP; Site: right antecubital; ha1 05:42 Drug: TORadol - Ketorolac IVP 15 mg Route: IVP; Site: right antecubital; ha1 05:45 Drug: morphine IVP or IV 4 mg Route: IVP; Infused Over: 4 mins; Site: right antecubital;ha1 06:15 Follow up: Response: No adverse reaction; Pain is decreased; RASS: Alert and Calm (0) ha1 Disposition Summary: 12/09/22 07:17 Discharge Ordered Location: Home sp4 Problem: new sp4 Symptoms: have improved sp4 Condition: Stable sp4 Diagnosis - Abdominal pain, unspecified sp4 - Lower abdominal pain, unspecified sp4 Followup: sp4 - With: Private Physician - When: As needed - Reason: Discharge Instructions: - Discharge Summary Sheet sp4 - Abdominal Pain, Adult sp4 Forms: - Leadership Thank You Letter sp4 Prescriptions: - Ibuprofen 800 mg Oral Tablet - take 1 tablet by ORAL route every 8 hours As needed take with food; 30 tablet; sp4 Refills: 0, Product Selection Permitted - Tramadol 50 mg Oral Tablet - take 1 tablet by ORAL route every 8 hours as needed; 12 tablet; Refills: 0, sp4 Product Selection Permitted Signatures: Dispatcher [employer] Miesha Antony RN RN kl Ayala, Heidy, RN RN ha1 Dany King MD MD sp4
[2022-12-09 08:03] VITALS: BP 118/60; TEMP 98; O2SAT 99
== END 2022-12-09 07:47 | disposition home or self-care (01) ==
LOC: ER 05:22
DX: R10.31 Right lower quadrant pain (principal)
CPT/HCPCS: 85025; 36415; 81003; 83690; 80053; 74177; 96375; 96374; 99284; Q9967; J2405; J7030

== ENCOUNTER → 2023-04-26 | Emergency (ER) | payer OTHER, SELFPAY ==
[~2023-04-26] MED LIST: CYCLOBENZAPRINE 10 MG TAB ONE; KETOROLAC 30 MG/ML INJ ONE; MORPHINE 4 MG/ML SYR ONE; NA CHLORIDE 0.9% 1,000 ML ONE; ONDANSETRON 4 MG/2 ML VIAL ONE
[2023-04-26 15:05] LABS: Absolute Lymphocytes (CBC) 1.1 K/uL (0.7-4.9); Lymphocytes % 21.3 % (15.3-44.8); MCV 89.4 fL (80-100); MPV 7.6 fL (7.6-11.3); Platelets 228 thou/uL (152-406); RBC Red Blood Cell Count 4.59 M/uL (4.33-5.43)
[2023-04-26 15:06] LABS: Urine Bilirubin NEGATIVE (Negative); Urine Blood Negative (Negative); Urine Clarity Clear (Clear); Urine Color Colorless (Yellow); Urine Glucose NEGATIVE (Negative); Urine Protein NEGATIVE (Negative); Urine Urobilinogen Normal (Normal)
[2023-04-26 15:19] LABS: Albumin 3.5 g/dL (3.4-5.0); Bilirubin Total 0.3 mg/dL (0.2-1.0); Potassium 3.9 mEq/L (3.5-5.1); Protein, Total 7.7 g/dL (6.4-8.2)
--- NOTE | 2023-04-26 15:21 | RAD REPORT ---
EXAM DESCRIPTION: US - Abdomen Exam Limited - 04/26/2023 2:02 pm CLINICAL HISTORY: ABD PAIN COMPARISON: Abdomen Pelvis W Contrast dated 12/09/2022 TECHNIQUE: Sonographic grayscale and color flow images of the right upper abdominal quadrant were o btained. FINDINGS: The gallbladder demonstrates no gallstones. No pericholecystic fluid or gallbladder wall t hickening. The common bile duct is normal measuring 3mm. The liver demonstrates no findings of intrahepatic biliary dilatation. IMPRESSION: Unremarkable examination.
--- NOTE | 2023-04-26 15:27 | RAD REPORT ---
EXAM DESCRIPTION: Aldo Single View04/26/2023 3:01 pm CLINICAL HISTORY: right flank pain COMPARISON: Abdomen Acute Series dated 09/11/2017 TECHNIQUE: Portable AP view of the chest. FINDINGS: The lungs are clear. No pneumothorax or effusion. The cardiomediastinal contours are unre markable. IMPRESSION: No acute cardiopulmonary process.
--- NOTE | 2023-04-26 15:34 | RAD REPORT ---
EXAM DESCRIPTION: CT - Chest Abdomen Pelvis W Cont - 04/26/2023 3:13 pm CLINICAL HISTORY: right lower rib area pain COMPARISON: No comparisons TECHNIQUE: Thin axial CT images of the chest, abdomen, and pelvis, performed following intravenous a dministration of 100mL Isovue-300. Multiplanar reformats were generated and reviewed. All CT scans are performed using dose optimization technique as appropriate and may include automated exposure control or mA/KV adjustment according to patient size. FINDINGS: The lungs are clear.No pleural or pericardial effusion.No intrathoracic adenopathy. The liver shows diffuse parenchymal hypoattenuation suggesting steatosis. Small regions of fatty spar ing near the gallbladder bed. Spleen, pancreas, adrenal glands and kidneys are within normal limits. No bowel obstruction, free air, free fluid or abscess. Suture line along small bowel in the right fla nk, suggestive of prior bowel resection. Normal appendix. No pathologic lymphadenopathy in the abdom en or pelvis. No worrisome osseous finding. IMPRESSION: No acute abnormalities. Diffuse hepatic steatosis.
--- NOTE | 2023-04-26 16:12 | ER ---
Nurse's Notes [facility] Name: Rajan Bardales Age: 43 yrs Sex: Male : 1980 Arrival Date: 04/26/2023 Time: 12:47 Bed 10 Private MD: Diagnosis: Chest pain, unspecified;Dorsalgia, unspecified Presentation: 04/26 13:10 Note Not in WR when called for triage. [facility] 13:17 Chief complaint: Patient states: Right upper abdominal pain for 3 days, worse when nj1 taking a deep breath or coughing. Denies fever, sore throat. Coronavirus screen: Vaccine status: Patient reports receiving the 2nd dose of the covid vaccine. Ebola Screen: Patient denies travel to an Ebola-affected area in the 21 days before illness onset. Initial Sepsis Screen: Does the patient meet any 2 criteria? HR > 90 bpm. No. Patient's initial sepsis screen is negative. Does the patient have a suspected source of infection? No. Patient's initial sepsis screen is negative. Risk Assessment: Do you want to hurt yourself or someone else? Patient reports no desire to harm self or others. Onset of symptoms was April 24, 2023. 13:17 Method Of Arrival: Ambulatory [facility] 13:17 Acuity: JALEESA 3 nj1 Historical: - Allergies: 13:20 No Known Allergies; nj1 - PMHx: 13:20 None; nj1 - PSHx: 13:20 hernia repair; nj1 - Immunization history:: Client reports receiving the 2nd dose of the Covid vaccine. - Social history:: Smoking status: Reported history of juuling and/or vaping. Screenin:01 [facility] ED Fall Risk Assessment (Adult) History of falling in the last 3 months, cm10 including since admission No falls in past 3 months (0 pts) Confusion or Disorientation No (0 pts) Intoxicated or Sedated No (0 pts) Impaired Gait No (0 pts) Mobility Assist Device Used No (0 pt) Altered Elimination No (0 pt) Score/Fall Risk Level 0 - 2 = Low Risk Oriented to surroundings, Maintained a safe environment, Hourly rounding (assess needs \T\ fall precautionary measures) done. Abuse screen: Denies threats or abuse. Denies injuries from another. Nutritional screening: No deficits noted. Tuberculosis screening: No symptoms or risk factors identified. Assessment: 14:59 General: Appears in no apparent distress. comfortable, Behavior is calm, cooperative. cm10 Pain: Complains of pain in right upper quadrant Pain does not radiate. Pain currently is 8 out of 10 on a pain scale. Aggravated by Deep breath. Neuro: No deficits noted. Samuels Agitation-Sedation Scale (RASS): 0 - Alert and Calm Level of Consciousness is awake, alert, obeys commands, Oriented to person, place, time, situation. Cardiovascular: No deficits noted. Denies chest pain, shortness of breath, Patient's skin is warm and dry. Respiratory: No deficits noted. Airway is patent Respiratory effort is even, unlabored, Respiratory pattern is regular, symmetrical. GI: Abdomen is obese, Bowel sounds Abd is soft. : No deficits noted. No signs and/or symptoms were reported regarding the genitourinary system. EENT: No deficits noted. No signs and/or symptoms were reported regarding the EENT system. Derm: No deficits noted. No signs and/or symptoms reported regarding the dermatologic system. Musculoskeletal: No deficits noted. Range of motion: intact in all extremities. 16:26 Reassessment: Patient appears in no apparent distress at this time. Patient and/or cm10 family updated on plan of care and expected duration. Pain level reassessed. Patient is alert, oriented x 3, equal unlabored respirations, skin warm/dry/pink. Patient states feeling better. Patient states symptoms have improved. Vital Signs: 13:17 BP 155 / 95; Pulse 100; Resp 18; Temp 98(O); Pulse Ox 99% ; Weight 135.17 kg; Height 5 nj1 ft. 10 in. ; Pain 8/10; 16:26 BP 140 / 95; Pulse 87; Resp 16; Pulse Ox 96% on R/A; cm10 13:17 Body Mass Index 42.76 (135.17 kg, 177.8 cm) nj1 13:17 Pain Scale: Adult nj1 ED Course: 12:52 Patient arrived in ED. mg5 13:15 Tone Christie PA is PHCP. cp 13:15 Jerry Alvarez MD is Attending Physician. cp 13:20 Triage completed. nj1 13:21 Arm band placed on left wrist. nj1 13:58 Abdomen Limited US In Process Unspecified. EDMS 14:07 Samantha Triana, RN is Primary Nurse. cm10 14:42 Initial lab(s) drawn, by me, sent to lab. Inserted saline lock: 20 gauge in right aa5 antecubital area, using aseptic technique. Blood collected. 15:01 XRAY Chest (1 view) In Process Unspecified. EDMS 15:01 Patient has correct armband on for positive identification. Placed in gown. Call light cm10 in reach. Provided Education on: ER process and procedures. . 15:14 CT Chest, Abdomen, Pelvis - W/Contrast In Process Unspecified. EDMS 16:26 No provider procedures requiring assistance completed. IV discontinued, intact, cm10 bleeding controlled, No redness/swelling at site. Pressure dressing applied. Administered Medications: 14:56 Drug: morphine IVP or IV 4 mg IVP once over 4 mins Route: IVP; Infused Over: 4 mins; cm10 Site: right antecubital; 16:25 Follow up: Response: No adverse reaction cm10 14:56 Drug: Ondansetron IVP 4 mg IVP once; over 2 minutes Route: IVP; Site: right antecubital;cm10 16:25 Follow up: Response: No adverse reaction cm10 14:56 Drug: NS 0.9% IV 1000 ml IV at 1 bolus Per protocol; 1000 mL bolus Route: IV; Rate: 1 cm10 bolus; Site: right antecubital; 16:25 Follow up: Response: No adverse reaction; IV Status: Completed infusion; IV Intake: cm10 1000ml 16:19 Drug: Ketorolac IVP 15 mg IVP once Route: IVP; Site: right antecubital; cm10 16:25 Follow up: Response: No adverse reaction cm10 16:19 Drug: Cyclobenzaprine PO 10 mg PO once Route: PO; cm10 16:25 Follow up: Response: No adverse reaction cm10 Medication: 16:26 VIS not applicable for this client. cm10 Intake: 16:25 IV: 1000ml; Total: 1000ml. cm10 Outcome: 16:11 Discharge ordered by . cp 16:26 Discharged to home ambulatory, with family, cm10 16:26 Condition: good 16:26 Discharge instructions given to patient, Instructed on discharge instructions, follow up and referral plans. medication usage, Demonstrated understanding of instructions, follow-up care, medications, Prescriptions given X 2, 16:27 Patient left the ED. cm10 Signatures: Dispatcher [employer] EDMS Josefina Collier, RN RN aa5 Tone Christie PA PA cp Jaco, Norma, RN RN nj1 Samantha Triana RN RN cm10 Maryjane Marroquin mg5 Corrections: (The following items were deleted from the chart) 13:21 13:17 Pulse 100bpm; Resp 18bpm; Pulse Ox 99%; Temp 98F Oral; 135.17 kg; Height 5 ft. 10 nj1 in.; BMI: 42.7; Pain 8/10, Adult; nj1
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
[2023-04-26 18:27] VITALS: BP 140/95; TEMP 98; O2SAT 96
== END ==
LOC: ER 12:47
DX: R07.9 Chest pain, unspecified (principal); M54.9 Dorsalgia, unspecified
CPT/HCPCS: 36415; 71045; 71260; 74177; 76705; 80053; 81003; 82565; 83690; 85025; 96361; 96374; 96375; 99284; J2405; J7030; Q9967